=== PATIENT | male | born 1965 | race Caucasian/White ===

== ENCOUNTER 2017-07-13 14:37 | Inpatient (IN) | payer MEDICARE, OTHER ==
[2017-07-13 15:40] LABS: ADD MAN DIFF? NO
[2017-07-13 15:41] LABS: BASOPHILS % 0.4 % (0.0-2.0); EOSINOPHILS # 0.2 10^3/ul (0.0-0.5); EOSINOPHILS % 2.5 % (0.0-7.0); HEMATOCRIT 33.8 % (42.0-52.0); HEMOGLOBIN 10.9 g/dl (14.0-18.0); LYMPHOCYTES # 1.6 10^3/ul (0.8-2.9); LYMPHOCYTES % 23.2 % (15.0-51.0); MEAN CORPUSCULAR HEMOGLOBIN 27.1 pg (29.0-33.0); MEAN CORPUSCULAR HGB CONC 32.2 g/dl (32.0-37.0); MEAN CORPUSCULAR VOLUME 84.1 fl (82.0-101.0); MEAN PLATELET VOLUME 10.9 fl (7.4-10.4); MONOCYTE # 0.5 10^3/ul (0.3-0.9); NEUTROPHIL # 4.5 10^3/ul (1.6-7.5); NEUTROPHILS % 66.8 % (39.0-77.0); PLATELET COUNT 162 10^3/UL (140-415); RED BLOOD COUNT 4.02 10^6/ul (4.70-6.10); RED CELL DISTRIBUTION WIDTH 18.6 % (11.5-14.5)
[2017-07-13 15:41] LABS: WHITE BLOOD COUNT 6.7 10^3/ul (4.8-10.8)
[2017-07-13 15:59] LABS: ALANINE AMINOTRANSFERASE 61 IU/L (13-69); ALBUMIN 3.5 g/dl (3.3-4.9); ALBUMIN/GLOBULIN RATIO 0.85; ALKALINE PHOSPHATASE 453 IU/L (42-121); ANION GAP 14 (8-16); ASPARTATE AMINO TRANSFERASE 55 IU/L (15-46); BILIRUBIN,INDIRECT 0.6 mg/dl (0-1.1); BILIRUBIN,TOTAL 0.6 mg/dl (0.2-1.3); BLOOD UREA NITROGEN 51 mg/dl (7-20); CALCIUM 8.6 mg/dl (8.4-10.2); CARBON DIOXIDE 33 mmol/L (21-31); CHLORIDE 105 mmol/L (97-110); GLUCOSE 63 mg/dl (70-220); POTASSIUM 3.7 mmol/L (3.5-5.1); SODIUM 148 mmol/L (135-144); TOTAL PROTEIN 7.6 g/dl (6.1-8.1)
[2017-07-13 16:09] LABS: PT RATIO 2.5
[2017-07-13 16:10] LABS: PARTIAL THROMBOPLASTIN TIME 54.3 Sec (25.0-35.0)
[2017-07-13 16:35] LABS: B-TYPE NATRIURETIC PEPTIDE 3370 PG/ML (0-125); TROPONIN-I 0.012 ng/ml (0.00-0.12)
[2017-07-13] MEDS: DEXTROSE 50% 50 ML SYRINGE IV (16:51)
[2017-07-13] MEDS ORDERED: ACETAMINOPHEN 325 MG TAB PO (17:30)
[2017-07-13] MEDS ORDERED: ONDANSETRON 4 MG INJ IV (17:30)
[2017-07-13] MEDS ORDERED: HYDROCODONE/APAP (5/325) TAB PO (18:30)
[2017-07-13] MEDS ORDERED: BUMETANIDE 1 MG INJ IV ×2 (18:30)
[2017-07-13] MEDS ORDERED: NACL 0.9% 3 ML SYG IV (18:30)
[2017-07-13] MEDS ORDERED: GLUCOSE GEL 15 GRAM TUBE BUCCAL (19:00)
[2017-07-13] MEDS ORDERED: DEXTROSE 50% 50 ML SYRINGE IV ×2 (19:00)
[2017-07-13] MEDS ORDERED: GLUCOSE GEL 15 GRAM TUBE PO ×2 (19:00)
[2017-07-13] MEDS ORDERED: GLUCAGON 1 MG INJ IM (19:00)
[2017-07-13] MEDS: INSULIN ASPART [NOVOLOG] 3 ML PEN SC (21:00)
[2017-07-13] MEDS ORDERED: PREGABALIN 100 MG CAP PO (21:00)
[2017-07-13] MEDS: ATORVASTATIN 80 MG TAB PO (21:51)
[2017-07-13] MEDS: INSULIN GLARGINE [LANtus] 3 ML PEN SC (21:55)
[2017-07-13] MEDS: BUMETANIDE 25 MG in DEXTROSE 5% 150 ML IV (22:00)
[2017-07-13] MEDS: PREGABALIN 50 MG CAP PO (22:03)
[2017-07-14] MEDS: ACCU-CHEK XX (02:00)
[2017-07-14] MEDS: AMIODARONE 200 MG TAB PO (08:37)
[2017-07-14] MEDS: ASPIRIN (EC) 81 MG TAB PO (08:37)
[2017-07-14] MEDS: ISOSORBIDE MONONITRATE(SR)60 MG TAB PO (08:38)
[2017-07-14] MEDS: CITALOPRAM 20 MG TAB PO (08:38)
[2017-07-14] MEDS: MAGNESIUM OXIDE 400 MG TAB PO (08:38)
[2017-07-14] MEDS: INSULIN ASPART [NOVOLOG] 3 ML PEN SC ×7 (09:00→20:47)
[2017-07-14 09:12] LABS: ADD MAN DIFF? NO
[2017-07-14 09:15] LABS: BASOPHILS % 0.6 % (0.0-2.0); EOSINOPHILS # 0.2 10^3/ul (0.0-0.5); EOSINOPHILS % 2.4 % (0.0-7.0); HEMATOCRIT 35.7 % (42.0-52.0); HEMOGLOBIN 11.6 g/dl (14.0-18.0); MEAN CORPUSCULAR HEMOGLOBIN 27.3 pg (29.0-33.0); MEAN CORPUSCULAR HGB CONC 32.5 g/dl (32.0-37.0); MEAN PLATELET VOLUME 11.4 fl (7.4-10.4); MONOCYTE # 0.4 10^3/ul (0.3-0.9); MONOCYTES % 6.3 % (0.0-11.0); NEUTROPHIL # 5.2 10^3/ul (1.6-7.5); NEUTROPHILS % 75.4 % (39.0-77.0); PLATELET COUNT 180 10^3/UL (140-415); RED BLOOD COUNT 4.25 10^6/ul (4.70-6.10); RED CELL DISTRIBUTION WIDTH 18.7 % (11.5-14.5)
[2017-07-14 09:35] LABS: ALANINE AMINOTRANSFERASE 64 IU/L (13-69); ALBUMIN 3.7 g/dl (3.3-4.9); ALKALINE PHOSPHATASE 502 IU/L (42-121); ANION GAP 15 (8-16); ASPARTATE AMINO TRANSFERASE 49 IU/L (15-46); BLOOD UREA NITROGEN 49 mg/dl (7-20); CALCIUM 8.9 mg/dl (8.4-10.2); CARBON DIOXIDE 34 mmol/L (21-31); CHLORIDE 101 mmol/L (97-110); CREATININE 2.16 mg/dl (0.61-1.24); GLUCOSE 155 mg/dl (70-220); POTASSIUM 3.4 mmol/L (3.5-5.1); SODIUM 147 mmol/L (135-144); TOTAL PROTEIN 7.8 g/dl (6.1-8.1)
[2017-07-14 09:38] LABS: HEMOGLOBIN A1C 7.8 % (0-5.9)
[2017-07-14] MEDS: POTASSIUM CHLORIDE (SR) 20 MEQ TAB PO (10:21)
[2017-07-14] MEDS: PREGABALIN 50 MG CAP PO ×3 (10:21→20:46)
[2017-07-14 13:34] LABS: PROTIME 29.4 Sec (11.9-14.9); PT RATIO 2.3
[2017-07-14] MEDS: WARFARIN 5 MG TAB PO (17:35)
[2017-07-14] MEDS: BUMETANIDE 1 MG INJ IV (18:06)
[2017-07-14] MEDS ORDERED: INSULIN GLARGINE [LANtus] 3 ML PEN SC (20:00)
[2017-07-14] MEDS: ATORVASTATIN 80 MG TAB PO (20:46)
[2017-07-14] MEDS: INSULIN GLARGINE [LANtus] 3 ML PEN SC (20:53)
[2017-07-15] MEDS: ACCU-CHEK XX (02:00)
[2017-07-15] MEDS: BUMETANIDE 1 MG INJ IV (05:33)
[2017-07-15 07:15] LABS: ADD MAN DIFF? NO
[2017-07-15 07:23] LABS: BASOPHILS % 0.6 % (0.0-2.0); EOSINOPHILS # 0.2 10^3/ul (0.0-0.5); EOSINOPHILS % 2.6 % (0.0-7.0); HEMATOCRIT 34.7 % (42.0-52.0); HEMOGLOBIN 11.3 g/dl (14.0-18.0); LYMPHOCYTES # 1.4 10^3/ul (0.8-2.9); MEAN CORPUSCULAR HEMOGLOBIN 27.6 pg (29.0-33.0); MEAN CORPUSCULAR HGB CONC 32.6 g/dl (32.0-37.0); MEAN CORPUSCULAR VOLUME 84.6 fl (82.0-101.0); MEAN PLATELET VOLUME 11.3 fl (7.4-10.4); MONOCYTE # 0.6 10^3/ul (0.3-0.9); MONOCYTES % 7.7 % (0.0-11.0); NEUTROPHIL # 5.1 10^3/ul (1.6-7.5); NEUTROPHILS % 69.8 % (39.0-77.0); PLATELET COUNT 176 10^3/UL (140-415); RED CELL DISTRIBUTION WIDTH 18.4 % (11.5-14.5)
[2017-07-15 07:23] LABS: WHITE BLOOD COUNT 7.3 10^3/ul (4.8-10.8)
[2017-07-15 07:43] LABS: INR 2.63; PROTIME 28.8 Sec (11.9-14.9); PT RATIO 2.3
[2017-07-15 07:44] LABS: ANION GAP 14 (8-16); BLOOD UREA NITROGEN 58 mg/dl (7-20); CALCIUM 8.4 mg/dl (8.4-10.2); CARBON DIOXIDE 35 mmol/L (21-31); CHLORIDE 97 mmol/L (97-110); CREATININE 2.28 mg/dl (0.61-1.24); GLUCOSE 141 mg/dl (70-220); MAGNESIUM 2.3 mg/dl (1.7-2.5); POTASSIUM 3.5 mmol/L (3.5-5.1); SODIUM 142 mmol/L (135-144)
[2017-07-15] MEDS: INSULIN ASPART [NOVOLOG] 3 ML PEN SC ×7 (07:55→21:23)
[2017-07-15] MEDS: PREGABALIN 50 MG CAP PO ×3 (08:20→20:47)
[2017-07-15] MEDS: CITALOPRAM 20 MG TAB PO (08:21)
[2017-07-15] MEDS: AMIODARONE 200 MG TAB PO (08:21)
[2017-07-15] MEDS: ASPIRIN (EC) 81 MG TAB PO (08:23)
[2017-07-15] MEDS: ISOSORBIDE MONONITRATE(SR)60 MG TAB PO (08:24)
[2017-07-15] MEDS: LINAGLIPTIN 5 MG TABLET PO (08:24)
[2017-07-15] MEDS: MAGNESIUM OXIDE 400 MG TAB PO (08:24)
[2017-07-15] MEDS: BUMETANIDE 12 MG in DEXTROSE 5% 72 ML IV (13:46)
[2017-07-15] MEDS: WARFARIN 5 MG TAB PO (17:40)
[2017-07-15] MEDS: ATORVASTATIN 80 MG TAB PO (20:48)
[2017-07-15] MEDS: INSULIN GLARGINE [LANtus] 3 ML PEN SC (21:14)
[2017-07-16] MEDS: ACCU-CHEK XX (02:20)
[2017-07-16 07:53] LABS: ANION GAP 11 (8-16); BLOOD UREA NITROGEN 67 mg/dl (7-20); CALCIUM 8.3 mg/dl (8.4-10.2); CARBON DIOXIDE 37 mmol/L (21-31); CHLORIDE 94 mmol/L (97-110); CREATININE 2.65 mg/dl (0.61-1.24); GLUCOSE 198 mg/dl (70-220); MAGNESIUM 2.5 mg/dl (1.7-2.5); POTASSIUM 3.4 mmol/L (3.5-5.1); SODIUM 139 mmol/L (135-144)
[2017-07-16] MEDS: AMIODARONE 200 MG TAB PO (08:08)
[2017-07-16] MEDS: CITALOPRAM 20 MG TAB PO (08:09)
[2017-07-16] MEDS: ASPIRIN (EC) 81 MG TAB PO (08:10)
[2017-07-16] MEDS: PREGABALIN 50 MG CAP PO ×2 (08:11→12:13)
[2017-07-16] MEDS: MAGNESIUM OXIDE 400 MG TAB PO (08:11)
[2017-07-16] MEDS: ISOSORBIDE MONONITRATE(SR)60 MG TAB PO (08:11)
[2017-07-16] MEDS: LINAGLIPTIN 5 MG TABLET PO (08:11)
[2017-07-16] MEDS: INSULIN ASPART [NOVOLOG] 3 ML PEN SC ×4 (08:15→12:20)
[2017-07-16] MEDS: POTASSIUM CHLORIDE (SR) 20 MEQ TAB PO (12:09)
[2017-07-16] MEDS ORDERED: INSULIN GLARGINE [LANtus] 3 ML PEN SC (20:00)
== END 2017-07-16 13:45 | disposition home or self-care (01) | DRG 291 ==
LOC: E/R 14:37 → TEL 17:07
DX: I13.0 Hypertensive heart and chronic kidney disease with heart failure and stage 1 through stage 4 chronic kidney disease, or unspecified chronic kidney disease (principal); I50.23 Acute on chronic systolic (congestive) heart failure; E11.22 Type 2 diabetes mellitus with diabetic chronic kidney disease; N18.3 Chronic kidney disease, stage 3 (moderate); E66.01 Morbid (severe) obesity due to excess calories; E11.40 Type 2 diabetes mellitus with diabetic neuropathy, unspecified; E11.65 Type 2 diabetes mellitus with hyperglycemia; Z68.43 Body mass index [BMI] 50.0-59.9, adult; I25.10 Atherosclerotic heart disease of native coronary artery without angina pectoris; I25.2 Old myocardial infarction; I48.91 Unspecified atrial fibrillation; I25.5 Ischemic cardiomyopathy; E78.5 Hyperlipidemia, unspecified; G47.33 Obstructive sleep apnea (adult) (pediatric); Z86.73 Personal history of transient ischemic attack (TIA), and cerebral infarction without residual deficits; Z79.4 Long term (current) use of insulin; Z95.5 Presence of coronary angioplasty implant and graft
CPT/HCPCS: 36415; 71045; 80048; 80053; 82962; 83036; 83735; 83880; 84484; 85025; 85610; 85730; 93005; 94660; 96374; 99285-25

== ENCOUNTER 2017-07-29 17:35 | Inpatient (IN) | payer MEDICARE, OTHER ==
[2017-07-29] MEDS: SOD CHLORIDE 0.9% 1,000 ML IV (18:24)
[2017-07-29] MEDS: FAMOTIDINE 20 MG INJ IV (18:25)
[2017-07-29 18:30] LABS: ADD MAN DIFF? NO
[2017-07-29 18:31] LABS: BASOPHILS % 0.5 % (0.0-2.0); EOSINOPHILS # 0.2 10^3/ul (0.0-0.5); EOSINOPHILS % 1.9 % (0.0-7.0); HEMATOCRIT 29.8 % (42.0-52.0); HEMOGLOBIN 9.7 g/dl (14.0-18.0); LYMPHOCYTES % 24.7 % (15.0-51.0); MEAN CORPUSCULAR HEMOGLOBIN 26.9 pg (29.0-33.0); MEAN CORPUSCULAR HGB CONC 32.6 g/dl (32.0-37.0); MEAN CORPUSCULAR VOLUME 82.5 fl (82.0-101.0); MEAN PLATELET VOLUME 11.2 fl (7.4-10.4); MONOCYTE # 0.7 10^3/ul (0.3-0.9); NEUTROPHIL # 5.1 10^3/ul (1.6-7.5); NEUTROPHILS % 63.8 % (39.0-77.0); PLATELET COUNT 182 10^3/UL (140-415); RED BLOOD COUNT 3.61 10^6/ul (4.70-6.10); RED CELL DISTRIBUTION WIDTH 18.6 % (11.5-14.5)
[2017-07-29 18:31] LABS: WHITE BLOOD COUNT 7.9 10^3/ul (4.8-10.8)
[2017-07-29 18:50] LABS: ALANINE AMINOTRANSFERASE 57 IU/L (13-69); ALBUMIN 3.6 g/dl (3.3-4.9); ALKALINE PHOSPHATASE 296 IU/L (42-121); ANION GAP 16 (8-16); ASPARTATE AMINO TRANSFERASE 40 IU/L (15-46); BILIRUBIN,INDIRECT 0.3 mg/dl (0-1.1); BILIRUBIN,TOTAL 0.3 mg/dl (0.2-1.3); BLOOD UREA NITROGEN 73 mg/dl (7-20); CALCIUM 8.5 mg/dl (8.4-10.2); CARBON DIOXIDE 33 mmol/L (21-31); CHLORIDE 95 mmol/L (97-110); CREATININE 2.82 mg/dl (0.61-1.24); GLUCOSE 151 mg/dl (70-220); POTASSIUM 3.7 mmol/L (3.5-5.1); SODIUM 140 mmol/L (135-144); TOTAL PROTEIN 7.6 g/dl (6.1-8.1)
[2017-07-29 19:01] LABS: TROPONIN-I 0.027 ng/ml (0.00-0.12)
[2017-07-29 19:05] LABS: INR 3.03; PROTIME 32.3 Sec (11.9-14.9); PT RATIO 2.5
[2017-07-29 19:06] LABS: PARTIAL THROMBOPLASTIN TIME 40.5 Sec (25.0-35.0)
[2017-07-29 20:08] LABS: ADD UMIC YES; UR ASCORBIC ACID NEGATIVE (NEGATIVE); UR BILIRUBIN (Dip) NEGATIVE (NEGATIVE); UR BLOOD (Dip) 1+ mg/dL (NEGATIVE); UR CLARITY CLEAR (CLEAR); UR COLOR YELLOW (YELLOW); UR GLUCOSE (Dip) NEGATIVE (NEGATIVE); UR KETONES (Dip) NEGATIVE (NEGATIVE); UR LEUKOCYTE ESTERASE (Dip) NEGATIVE Leu/ul (NEGATIVE); UR NITRITE (Dip) NEGATIVE (NEGATIVE); UR RBC 6 /HPF (0-5); UR TOTAL PROTEIN (Dip) NEGATIVE (NEGATIVE); UR UROBILINOGEN (Dip) NEGATIVE (NEGATIVE); UR WBC 0 /HPF (0-5)
[2017-07-29 21:15] LABS: HEMATOCRIT 31.1 % (42.0-52.0); HEMOGLOBIN 9.9 g/dl (14.0-18.0)
[2017-07-29] MEDS ORDERED: NACL 0.9% 3 ML SYG IV (23:00)
[2017-07-29] MEDS ORDERED: ZOLPIDEM 5 MG TAB PO (23:00)
[2017-07-29] MEDS ORDERED: HYDROCODONE/APAP (5/325) TAB PO (23:00)
[2017-07-29] MEDS ORDERED: GLUCOSE GEL 15 GRAM TUBE BUCCAL (23:30)
[2017-07-29] MEDS ORDERED: GLUCOSE GEL 15 GRAM TUBE PO ×2 (23:30)
[2017-07-29] MEDS ORDERED: GLUCAGON 1 MG INJ IM (23:30)
[2017-07-29] MEDS ORDERED: DEXTROSE 50% 50 ML SYRINGE IV ×2 (23:30)
[2017-07-30] MEDS: PHYTONADIONE 10 MG in DEXTROSE 5% 50 ML IVPB (00:11)
[2017-07-30 00:27] LABS: PROTIME 30.3 Sec (11.9-14.9); PT RATIO 2.4
[2017-07-30 00:28] LABS: PARTIAL THROMBOPLASTIN TIME 38.9 Sec (25.0-35.0)
[2017-07-30] MEDS ORDERED: ACCU-CHEK XX (02:00)
[2017-07-30] MEDS: INSULIN ASPART [NOVOLOG] 3 ML PEN SC ×9 (05:07→20:34)
[2017-07-30 05:16] LABS: ADD MAN DIFF? NO
[2017-07-30 05:18] LABS: BASOPHILS % 0.5 % (0.0-2.0); EOSINOPHILS # 0.2 10^3/ul (0.0-0.5); EOSINOPHILS % 2.3 % (0.0-7.0); HEMATOCRIT 29.7 % (42.0-52.0); HEMOGLOBIN 9.6 g/dl (14.0-18.0); LYMPHOCYTES # 1.9 10^3/ul (0.8-2.9); LYMPHOCYTES % 26.6 % (15.0-51.0); MEAN CORPUSCULAR HEMOGLOBIN 27.2 pg (29.0-33.0); MEAN CORPUSCULAR HGB CONC 32.3 g/dl (32.0-37.0); MEAN CORPUSCULAR VOLUME 84.1 fl (82.0-101.0); MEAN PLATELET VOLUME 11.3 fl (7.4-10.4); MONOCYTE # 0.6 10^3/ul (0.3-0.9); MONOCYTES % 8.5 % (0.0-11.0); NEUTROPHIL # 4.5 10^3/ul (1.6-7.5); NEUTROPHILS % 61.8 % (39.0-77.0); PLATELET COUNT 180 10^3/UL (140-415); RED BLOOD COUNT 3.53 10^6/ul (4.70-6.10); RED CELL DISTRIBUTION WIDTH 18.5 % (11.5-14.5)
[2017-07-30 05:18] LABS: WHITE BLOOD COUNT 7.3 10^3/ul (4.8-10.8)
[2017-07-30 05:38] LABS: ALANINE AMINOTRANSFERASE 55 IU/L (13-69); ALBUMIN 3.5 g/dl (3.3-4.9); ALBUMIN/GLOBULIN RATIO 0.94; ALKALINE PHOSPHATASE 277 IU/L (42-121); ANION GAP 14 (8-16); ASPARTATE AMINO TRANSFERASE 38 IU/L (15-46); BILIRUBIN,INDIRECT 0.3 mg/dl (0-1.1); BILIRUBIN,TOTAL 0.3 mg/dl (0.2-1.3); BLOOD UREA NITROGEN 69 mg/dl (7-20); CALCIUM 8.2 mg/dl (8.4-10.2); CARBON DIOXIDE 30 mmol/L (21-31); CHLORIDE 101 mmol/L (97-110); CREATININE 2.49 mg/dl (0.61-1.24); GLUCOSE 300 mg/dl (70-220); POTASSIUM 3.3 mmol/L (3.5-5.1); SODIUM 142 mmol/L (135-144); TOTAL PROTEIN 7.2 g/dl (6.1-8.1)
[2017-07-30 05:59] LABS: PARTIAL THROMBOPLASTIN TIME 33.6 Sec (25.0-35.0); PROTIME 22.2 Sec (11.9-14.9); PT RATIO 1.7
[2017-07-30] MEDS ORDERED: INSULIN ASPART [NOVOLOG] 3 ML PEN SC (08:00)
[2017-07-30] MEDS: CITALOPRAM 20 MG TAB PO (09:31)
[2017-07-30] MEDS: AMIODARONE 200 MG TAB PO (09:32)
[2017-07-30] MEDS: PREGABALIN 100 MG CAP PO ×3 (09:33→20:28)
[2017-07-30] MEDS: CHLORTHALIDONE 25 MG TAB PO (09:33)
[2017-07-30] MEDS: ISOSORBIDE MONONITRATE(SR)60 MG TAB PO (10:29)
[2017-07-30] MEDS: POTASSIUM CHLORIDE (SR) 10 MEQ TAB PO (10:35)
[2017-07-30] MEDS: BUMETANIDE 1 MG TAB PO ×2 (12:02→17:43)
[2017-07-30] MEDS: BISACODYL (EC) 5 MG TAB PO (16:52)
[2017-07-30] MEDS: MAGNESIUM CITRATE 300 ML BTL PO (17:47)
[2017-07-30] MEDS: POLYETHYLENE GLYCOL 3350 119 GM POWDER PO (18:20)
[2017-07-30] MEDS: ATORVASTATIN 80 MG TAB PO (20:28)
[2017-07-30] MEDS: INSULIN GLARGINE [LANtus] 3 ML PEN SC (20:33)
[2017-07-30 23:11] LABS: ADD MAN DIFF? NO
[2017-07-30 23:13] LABS: BASOPHIL # 0.1 10^3/ul (0.0-0.1); BASOPHILS % 0.7 % (0.0-2.0); EOSINOPHILS # 0.2 10^3/ul (0.0-0.5); EOSINOPHILS % 2.7 % (0.0-7.0); HEMATOCRIT 30.4 % (42.0-52.0); HEMOGLOBIN 9.5 g/dl (14.0-18.0); LYMPHOCYTES # 1.9 10^3/ul (0.8-2.9); LYMPHOCYTES % 27.6 % (15.0-51.0); MEAN CORPUSCULAR HEMOGLOBIN 26.4 pg (29.0-33.0); MEAN CORPUSCULAR HGB CONC 31.3 g/dl (32.0-37.0); MEAN CORPUSCULAR VOLUME 84.4 fl (82.0-101.0); MEAN PLATELET VOLUME 10.9 fl (7.4-10.4); MONOCYTE # 0.6 10^3/ul (0.3-0.9); MONOCYTES % 8.2 % (0.0-11.0); NEUTROPHIL # 4.3 10^3/ul (1.6-7.5); NEUTROPHILS % 60.5 % (39.0-77.0); PLATELET COUNT 190 10^3/UL (140-415); RED CELL DISTRIBUTION WIDTH 18.6 % (11.5-14.5)
[2017-07-31] MEDS: BUMETANIDE 1 MG TAB PO ×2 (05:13→17:26)
[2017-07-31] MEDS: POLYETHYLENE GLYCOL 3350 119 GM POWDER PO ×2 (05:19→18:05)
[2017-07-31 05:36] LABS: ADD MAN DIFF? NO
[2017-07-31 05:41] LABS: WHITE BLOOD COUNT 7.4 10^3/ul (4.8-10.8)
[2017-07-31 05:41] LABS: BASOPHIL # 0.1 10^3/ul (0.0-0.1); BASOPHILS % 0.7 % (0.0-2.0); EOSINOPHILS # 0.2 10^3/ul (0.0-0.5); HEMATOCRIT 29.5 % (42.0-52.0); HEMOGLOBIN 9.5 g/dl (14.0-18.0); LYMPHOCYTES # 1.9 10^3/ul (0.8-2.9); LYMPHOCYTES % 25.4 % (15.0-51.0); MEAN CORPUSCULAR HGB CONC 32.2 g/dl (32.0-37.0); MEAN CORPUSCULAR VOLUME 83.8 fl (82.0-101.0); MEAN PLATELET VOLUME 11.3 fl (7.4-10.4); MONOCYTE # 0.7 10^3/ul (0.3-0.9); MONOCYTES % 8.9 % (0.0-11.0); NEUTROPHIL # 4.6 10^3/ul (1.6-7.5); NEUTROPHILS % 61.9 % (39.0-77.0); PLATELET COUNT 183 10^3/UL (140-415); RED BLOOD COUNT 3.52 10^6/ul (4.70-6.10); RED CELL DISTRIBUTION WIDTH 18.6 % (11.5-14.5)
[2017-07-31 05:53] LABS: HEMOGLOBIN A1C 7.2 % (0-5.9)
[2017-07-31 06:04] LABS: INR 1.28; PROTIME 16.2 Sec (11.9-14.9); PT RATIO 1.3
[2017-07-31 06:07] LABS: ALANINE AMINOTRANSFERASE 64 IU/L (13-69); ALBUMIN 3.4 g/dl (3.3-4.9); ALBUMIN/GLOBULIN RATIO 0.85; ALKALINE PHOSPHATASE 307 IU/L (42-121); ANION GAP 10 (8-16); ASPARTATE AMINO TRANSFERASE 46 IU/L (15-46); BLOOD UREA NITROGEN 67 mg/dl (7-20); CALCIUM 8.5 mg/dl (8.4-10.2); CARBON DIOXIDE 36 mmol/L (21-31); CHLORIDE 99 mmol/L (97-110); GLUCOSE 105 mg/dl (70-220); SODIUM 142 mmol/L (135-144); TOTAL PROTEIN 7.4 g/dl (6.1-8.1)
[2017-07-31 06:08] LABS: PHOSPHORUS 4.3 mg/dl (2.5-4.9)
[2017-07-31 06:08] LABS: CHOL/HDL RATIO 3.1 RATIO; CHOLESTEROL 98 mg/dl (100-200); HDL CHOLESTEROL 31 mg/dl (28-71); LDL CHOLESTEROL,CALCULATED 44 mg/dl; TRIGLYCERIDES 116 mg/dl (0-149)
[2017-07-31 06:10] LABS: POTASSIUM 2.9 mmol/L (3.5-5.1)
[2017-07-31] MEDS ORDERED: POTASSIUM CHLORIDE (SR) 20 MEQ TAB PO (06:14)
[2017-07-31 06:22] LABS: FREE T4 (FREE THYROXINE) 1.29 ng/dl (0.64-1.79)
[2017-07-31] MEDS ORDERED: POTASSIUM CHLORIDE 100 ML IVPB (06:30)
[2017-07-31] MEDS: POTASSIUM CHLORIDE (SR) 20 MEQ TAB PO (06:40)
[2017-07-31] MEDS: INSULIN ASPART [NOVOLOG] 3 ML PEN SC ×7 (07:50→21:00)
[2017-07-31] MEDS: POTASSIUM CHLORIDE 100 ML IVPB ×2 (08:31→08:36)
[2017-07-31] MEDS: AMIODARONE 200 MG TAB PO (09:31)
[2017-07-31] MEDS: CITALOPRAM 20 MG TAB PO (09:32)
[2017-07-31] MEDS: CHLORTHALIDONE 25 MG TAB PO (09:36)
[2017-07-31] MEDS: ISOSORBIDE MONONITRATE(SR)60 MG TAB PO (09:37)
[2017-07-31] MEDS: PREGABALIN 100 MG CAP PO ×3 (09:38→20:28)
[2017-07-31] MEDS: BISACODYL (EC) 5 MG TAB PO ×2 (09:39→17:26)
[2017-07-31] MEDS: MAGNESIUM CITRATE 300 ML BTL PO (18:04)
[2017-07-31] MEDS: INSULIN GLARGINE [LANtus] 3 ML PEN SC (20:28)
[2017-07-31] MEDS: ATORVASTATIN 80 MG TAB PO (21:00)
[2017-08-01 05:45] LABS: ADD MAN DIFF? NO
[2017-08-01] MEDS: POLYETHYLENE GLYCOL 3350 119 GM POWDER PO (05:53)
[2017-08-01] MEDS: BUMETANIDE 1 MG TAB PO ×2 (05:53→18:00)
[2017-08-01 06:09] LABS: BASOPHILS % 0.6 % (0.0-2.0); EOSINOPHILS # 0.2 10^3/ul (0.0-0.5); EOSINOPHILS % 2.8 % (0.0-7.0); HEMATOCRIT 31.1 % (42.0-52.0); HEMOGLOBIN 9.8 g/dl (14.0-18.0); LYMPHOCYTES # 1.7 10^3/ul (0.8-2.9); LYMPHOCYTES % 24.9 % (15.0-51.0); MEAN CORPUSCULAR HEMOGLOBIN 26.7 pg (29.0-33.0); MEAN CORPUSCULAR HGB CONC 31.5 g/dl (32.0-37.0); MEAN CORPUSCULAR VOLUME 84.7 fl (82.0-101.0); MEAN PLATELET VOLUME 11.5 fl (7.4-10.4); MONOCYTE # 0.6 10^3/ul (0.3-0.9); MONOCYTES % 9.3 % (0.0-11.0); NEUTROPHIL # 4.2 10^3/ul (1.6-7.5); NEUTROPHILS % 62.3 % (39.0-77.0); PLATELET COUNT 191 10^3/UL (140-415); RED BLOOD COUNT 3.67 10^6/ul (4.70-6.10); RED CELL DISTRIBUTION WIDTH 18.5 % (11.5-14.5)
[2017-08-01 06:09] LABS: WHITE BLOOD COUNT 6.7 10^3/ul (4.8-10.8)
[2017-08-01 06:11] LABS: INR 1.25; PROTIME 15.9 Sec (11.9-14.9); PT RATIO 1.2
[2017-08-01 06:31] LABS: PHOSPHORUS 4.4 mg/dl (2.5-4.9)
[2017-08-01 06:32] LABS: ALANINE AMINOTRANSFERASE 81 IU/L (13-69); ALBUMIN 3.6 g/dl (3.3-4.9); ALKALINE PHOSPHATASE 344 IU/L (42-121); ANION GAP 10 (8-16); ASPARTATE AMINO TRANSFERASE 63 IU/L (15-46); BLOOD UREA NITROGEN 62 mg/dl (7-20); CALCIUM 8.6 mg/dl (8.4-10.2); CARBON DIOXIDE 37 mmol/L (21-31); CHLORIDE 99 mmol/L (97-110); CREATININE 2.28 mg/dl (0.61-1.24); GLUCOSE 100 mg/dl (70-220); SODIUM 143 mmol/L (135-144); TOTAL PROTEIN 7.6 g/dl (6.1-8.1)
[2017-08-01 06:34] LABS: POTASSIUM 2.6 mmol/L (3.5-5.1)
[2017-08-01] MEDS: INSULIN ASPART [NOVOLOG] 3 ML PEN SC ×7 (07:50→21:00)
[2017-08-01] MEDS: POTASSIUM CHLORIDE 100 ML IVPB ×2 (08:31→10:30)
[2017-08-01] MEDS: ISOSORBIDE MONONITRATE(SR)60 MG TAB PO (08:32)
[2017-08-01] MEDS: BISACODYL (EC) 5 MG TAB PO (08:33)
[2017-08-01] MEDS: CITALOPRAM 20 MG TAB PO (08:33)
[2017-08-01] MEDS: AMIODARONE 200 MG TAB PO (08:33)
[2017-08-01] MEDS: CHLORTHALIDONE 25 MG TAB PO (08:34)
[2017-08-01] MEDS: PREGABALIN 100 MG CAP PO ×3 (08:34→22:09)
[2017-08-01 14:24] LABS: POTASSIUM 2.8 mmol/L (3.5-5.1)
[2017-08-01] MEDS: LIDOCAINE 4% SOLUTION 50 ML BTL (19:08)
[2017-08-01] MEDS ORDERED: ONDANSETRON 4 MG INJ IV (19:30)
[2017-08-01] MEDS ORDERED: LIDOCAINE 2% (SDV) 5 ML INJ (19:57)
[2017-08-01] MEDS ORDERED: ETOMIDATE 20 MG INJ (19:57)
[2017-08-01] MEDS ORDERED: MIDAZOLAM 1 MG/ML 2 ML INJ (19:59)
[2017-08-01] MEDS ORDERED: POTASSIUM CHLORIDE 50 ML IVPB (22:00)
[2017-08-01] MEDS ORDERED: POTASSIUM CHLORIDE 100 ML IVPB (22:00)
[2017-08-01] MEDS ORDERED: POTASSIUM BICARBONATE 25 MEQ TAB PO (22:00)
[2017-08-01] MEDS: ATORVASTATIN 80 MG TAB PO (22:09)
[2017-08-01] MEDS: INSULIN GLARGINE [LANtus] 3 ML PEN SC (22:16)
[2017-08-01] MEDS: KCL 30 MEQ in NS 250 ML IVPB X1 IVPB (23:46)
[2017-08-01] MEDS: POTASSIUM CHLORIDE (SR) 20 MEQ TAB PO (23:46)
[2017-08-02 05:17] LABS: WHITE BLOOD COUNT 6.6 10^3/ul (4.8-10.8)
[2017-08-02 05:17] LABS: ADD MAN DIFF? NO; BASOPHILS % 0.5 % (0.0-2.0); EOSINOPHILS # 0.1 10^3/ul (0.0-0.5); HEMATOCRIT 32.1 % (42.0-52.0); HEMOGLOBIN 10.2 g/dl (14.0-18.0); LYMPHOCYTES # 1.9 10^3/ul (0.8-2.9); MEAN CORPUSCULAR HEMOGLOBIN 26.9 pg (29.0-33.0); MEAN CORPUSCULAR HGB CONC 31.8 g/dl (32.0-37.0); MEAN CORPUSCULAR VOLUME 84.7 fl (82.0-101.0); MEAN PLATELET VOLUME 11.7 fl (7.4-10.4); MONOCYTE # 0.6 10^3/ul (0.3-0.9); MONOCYTES % 8.7 % (0.0-11.0); NEUTROPHILS % 59.8 % (39.0-77.0); PLATELET COUNT 199 10^3/UL (140-415); RED BLOOD COUNT 3.79 10^6/ul (4.70-6.10); RED CELL DISTRIBUTION WIDTH 18.9 % (11.5-14.5)
[2017-08-02] MEDS: BUMETANIDE 1 MG TAB PO ×2 (05:28→18:11)
[2017-08-02 05:46] LABS: ANION GAP 11 (8-16); BLOOD UREA NITROGEN 59 mg/dl (7-20); CALCIUM 8.9 mg/dl (8.4-10.2); CARBON DIOXIDE 37 mmol/L (21-31); CHLORIDE 97 mmol/L (97-110); CREATININE 2.39 mg/dl (0.61-1.24); GLUCOSE 213 mg/dl (70-220); MAGNESIUM 2.7 mg/dl (1.7-2.5); POTASSIUM 3.3 mmol/L (3.5-5.1); SODIUM 142 mmol/L (135-144)
[2017-08-02] MEDS: PREGABALIN 100 MG CAP PO ×3 (08:44→20:47)
[2017-08-02] MEDS: CITALOPRAM 20 MG TAB PO (08:44)
[2017-08-02] MEDS: CHLORTHALIDONE 25 MG TAB PO (08:47)
[2017-08-02] MEDS: ISOSORBIDE MONONITRATE(SR)60 MG TAB PO (08:47)
[2017-08-02] MEDS: AMIODARONE 200 MG TAB PO (08:49)
[2017-08-02] MEDS: INSULIN ASPART [NOVOLOG] 3 ML PEN SC ×7 (08:52→21:00)
[2017-08-02] MEDS: POTASSIUM CHLORIDE 20 MEQ POWDER FOR ORAL SOLN PO (08:59)
[2017-08-02] MEDS ORDERED: POTASSIUM BICARBONATE 25 MEQ TAB PO (09:00)
[2017-08-02] MEDS ORDERED: POTASSIUM CHLORIDE (SR) 20 MEQ TAB PO (09:00)
[2017-08-02] MEDS: ATORVASTATIN 80 MG TAB PO (20:53)
[2017-08-02] MEDS: INSULIN GLARGINE [LANtus] 3 ML PEN SC (20:56)
[2017-08-02] MEDS: POTASSIUM CHLORIDE (SR) 20 MEQ TAB PO (21:56)
[2017-08-03] MEDS: BUMETANIDE 1 MG TAB PO (04:44)
[2017-08-03 05:16] LABS: ADD MAN DIFF? NO
[2017-08-03 05:22] LABS: BASOPHIL # 0.1 10^3/ul (0.0-0.1); BASOPHILS % 0.9 % (0.0-2.0); EOSINOPHILS # 0.2 10^3/ul (0.0-0.5); EOSINOPHILS % 2.8 % (0.0-7.0); HEMATOCRIT 30.9 % (42.0-52.0); HEMOGLOBIN 9.8 g/dl (14.0-18.0); LYMPHOCYTES % 28.8 % (15.0-51.0); MEAN CORPUSCULAR HEMOGLOBIN 26.8 pg (29.0-33.0); MEAN CORPUSCULAR HGB CONC 31.7 g/dl (32.0-37.0); MEAN CORPUSCULAR VOLUME 84.7 fl (82.0-101.0); MEAN PLATELET VOLUME 11.9 fl (7.4-10.4); MONOCYTE # 0.7 10^3/ul (0.3-0.9); MONOCYTES % 10.3 % (0.0-11.0); NEUTROPHIL # 3.9 10^3/ul (1.6-7.5); NEUTROPHILS % 56.9 % (39.0-77.0); PLATELET COUNT 190 10^3/UL (140-415); RED BLOOD COUNT 3.65 10^6/ul (4.70-6.10); RED CELL DISTRIBUTION WIDTH 18.6 % (11.5-14.5)
[2017-08-03 05:22] LABS: WHITE BLOOD COUNT 6.8 10^3/ul (4.8-10.8)
[2017-08-03 05:42] LABS: ANION GAP 17 (8-16); BLOOD UREA NITROGEN 68 mg/dl (7-20); CARBON DIOXIDE 31 mmol/L (21-31); CHLORIDE 95 mmol/L (97-110); CREATININE 2.65 mg/dl (0.61-1.24); GLUCOSE 163 mg/dl (70-220); POTASSIUM 3.6 mmol/L (3.5-5.1); SODIUM 139 mmol/L (135-144)
[2017-08-03] MEDS: CITALOPRAM 20 MG TAB PO (08:58)
[2017-08-03] MEDS: AMIODARONE 200 MG TAB PO (09:00)
[2017-08-03] MEDS: CHLORTHALIDONE 25 MG TAB PO (09:02)
[2017-08-03] MEDS: INSULIN ASPART [NOVOLOG] 3 ML PEN SC ×2 (09:02→09:03)
[2017-08-03] MEDS: ISOSORBIDE MONONITRATE(SR)60 MG TAB PO (09:04)
[2017-08-03] MEDS: PREGABALIN 100 MG CAP PO (09:04)
== END 2017-08-03 12:33 | disposition home or self-care (01) | DRG 377 ==
LOC: E/R 17:35 → MS1 21:10
PROC: 0DJ08ZZ Inspection of Upper Intestinal Tract, Via Natural or Artificial Opening Endoscopic (ICD-10-PCS; principal; 2017-08-01 18:45)
PROC: 0DBK8ZX Excision of Ascending Colon, Via Natural or Artificial Opening Endoscopic, Diagnostic (ICD-10-PCS; 2017-08-01 18:45)
DX: K92.1 Melena (principal); I50.23 Acute on chronic systolic (congestive) heart failure; Z68.43 Body mass index [BMI] 50.0-59.9, adult; D62 Acute posthemorrhagic anemia; I13.0 Hypertensive heart and chronic kidney disease with heart failure and stage 1 through stage 4 chronic kidney disease, or unspecified chronic kidney disease; E66.01 Morbid (severe) obesity due to excess calories; E11.22 Type 2 diabetes mellitus with diabetic chronic kidney disease; N18.3 Chronic kidney disease, stage 3 (moderate); I25.5 Ischemic cardiomyopathy; D64.9 Anemia, unspecified; I25.10 Atherosclerotic heart disease of native coronary artery without angina pectoris; E78.5 Hyperlipidemia, unspecified; G47.33 Obstructive sleep apnea (adult) (pediatric); I48.0 Paroxysmal atrial fibrillation; E11.40 Type 2 diabetes mellitus with diabetic neuropathy, unspecified; E83.41 Hypermagnesemia; L40.9 Psoriasis, unspecified; E87.6 Hypokalemia; K29.70 Gastritis, unspecified, without bleeding; K63.5 Polyp of colon; F17.210 Nicotine dependence, cigarettes, uncomplicated; T45.515A Adverse effect of anticoagulants, initial encounter; I25.2 Old myocardial infarction; Y92.019 Unspecified place in single-family (private) house as the place of occurrence of the external cause; Z79.01 Long term (current) use of anticoagulants; Z79.4 Long term (current) use of insulin; Z79.82 Long term (current) use of aspirin; Z86.73 Personal history of transient ischemic attack (TIA), and cerebral infarction without residual deficits; Z95.0 Presence of cardiac pacemaker; Z90.49 Acquired absence of other specified parts of digestive tract
CPT/HCPCS: 36415; 71045; 80048; 80053; 80061; 81001; 82962; 83036; 83735; 84100; 84132; 84439; 84443; 84484; 85014; 85018; 85025; 85610; 85730; 86850; 86900; 86901; 88305; 93005; 94660; 96374; 99285-25

== ENCOUNTER 2017-09-21 14:34 | Inpatient (IN) | payer MEDICARE, OTHER ==
[2017-09-21 16:35] LABS: ADD MAN DIFF? NO
[2017-09-21 16:41] LABS: ABNORMAL IP MESSAGE 1; BASOPHIL # 0.1 10^3/ul (0.0-0.1); BASOPHILS % 0.5 % (0.0-2.0); EOSINOPHILS # 0.3 10^3/ul (0.0-0.5); EOSINOPHILS % 3.1 % (0.0-7.0); HEMOGLOBIN 9.9 g/dl (14.0-18.0); LYMPHOCYTES # 1.6 10^3/ul (0.8-2.9); LYMPHOCYTES % 16.4 % (15.0-51.0); MEAN CORPUSCULAR HEMOGLOBIN 23.6 pg (29.0-33.0); MEAN CORPUSCULAR HGB CONC 30.9 g/dl (32.0-37.0); MEAN CORPUSCULAR VOLUME 76.4 fl (82.0-101.0); MEAN PLATELET VOLUME 10.8 fl (7.4-10.4); MONOCYTE # 0.7 10^3/ul (0.3-0.9); MONOCYTES % 6.9 % (0.0-11.0); NEUTROPHIL # 7.1 10^3/ul (1.6-7.5); NEUTROPHILS % 72.9 % (39.0-77.0); PLATELET COUNT 215 10^3/UL (140-415); POSITIVE DIFF @See below; RED BLOOD COUNT 4.19 10^6/ul (4.70-6.10); RED CELL DISTRIBUTION WIDTH 19.9 % (11.5-14.5)
[2017-09-21 16:41] LABS: WHITE BLOOD COUNT 9.7 10^3/ul (4.8-10.8)
[2017-09-21 16:57] LABS: ALANINE AMINOTRANSFERASE 25 IU/L (13-69); ALBUMIN 3.8 g/dl (3.3-4.9); ALBUMIN/GLOBULIN RATIO 0.86; ALKALINE PHOSPHATASE 202 IU/L (42-121); ANION GAP 14 (8-16); ASPARTATE AMINO TRANSFERASE 16 IU/L (15-46); BILIRUBIN,INDIRECT 0.6 mg/dl (0-1.1); BILIRUBIN,TOTAL 0.6 mg/dl (0.2-1.3); BLOOD UREA NITROGEN 64 mg/dl (7-20); CARBON DIOXIDE 35 mmol/L (21-31); CHLORIDE 97 mmol/L (97-110); GLUCOSE 81 mg/dl (70-220); POTASSIUM 3.7 mmol/L (3.5-5.1); SODIUM 142 mmol/L (135-144); TOTAL PROTEIN 8.2 g/dl (6.1-8.1)
[2017-09-21 17:01] LABS: INR 1.09; PROTIME 14.3 Sec (11.9-14.9); PT RATIO 1.1
[2017-09-21 17:02] LABS: PARTIAL THROMBOPLASTIN TIME 27.4 Sec (25.0-35.0)
[2017-09-21] MEDS: BUMETANIDE 3 MG in DEXTROSE 5% 30 ML IVPB (17:02)
[2017-09-21] MEDS: BUMETANIDE 1 MG INJ IV (17:03)
[2017-09-21] MEDS: ASPIRIN 325 MG TAB PO (17:24)
[2017-09-21] MEDS ORDERED: ONDANSETRON 4 MG INJ IV (19:00)
[2017-09-21] MEDS ORDERED: ACETAMINOPHEN 325 MG TAB PO (19:00)
[2017-09-21] MEDS ORDERED: HYDROCODONE/APAP (5/325) TAB PO (19:30)
[2017-09-21] MEDS ORDERED: NACL 0.9% 3 ML SYG IV (19:30)
[2017-09-21 20:04] LABS: D-DIMER 282.17 ng/ml (<460)
[2017-09-21 20:16] LABS: CREATINE KINASE 103 IU/L (23-200)
[2017-09-21 20:28] LABS: CK INDEX 1.2
[2017-09-21 20:29] LABS: CK-MB 1.23 ng/ml (0.0-2.4); TROPONIN-I 0.275 ng/ml (0.000-0.120)
[2017-09-21] MEDS: BUMETANIDE 25 MG in DEXTROSE 5% 150 ML IV (20:35)
[2017-09-21] MEDS: INSULIN GLARGINE [LANtus] 3 ML PEN SC (20:58)
[2017-09-21] MEDS: ATORVASTATIN 80 MG TAB PO (20:59)
[2017-09-21] MEDS: HEPARIN 5,000 UNIT/0.5 ML VIAL SC (21:01)
[2017-09-21] MEDS: PREGABALIN 100 MG CAP PO (22:23)
[2017-09-22 06:13] LABS: ADD MAN DIFF? NO
[2017-09-22 06:23] LABS: WHITE BLOOD COUNT 8.2 10^3/ul (4.8-10.8)
[2017-09-22 06:23] LABS: ABNORMAL IP MESSAGE 1; BASOPHILS % 0.5 % (0.0-2.0); EOSINOPHILS # 0.3 10^3/ul (0.0-0.5); EOSINOPHILS % 3.7 % (0.0-7.0); HEMATOCRIT 32.7 % (42.0-52.0); LYMPHOCYTES % 24.7 % (15.0-51.0); MEAN CORPUSCULAR HEMOGLOBIN 23.3 pg (29.0-33.0); MEAN CORPUSCULAR HGB CONC 30.6 g/dl (32.0-37.0); MEAN CORPUSCULAR VOLUME 76.2 fl (82.0-101.0); MONOCYTE # 0.6 10^3/ul (0.3-0.9); MONOCYTES % 6.7 % (0.0-11.0); NEUTROPHIL # 5.3 10^3/ul (1.6-7.5); NEUTROPHILS % 64.2 % (39.0-77.0); PLATELET COUNT 214 10^3/UL (140-415); POSITIVE DIFF @See below; RED BLOOD COUNT 4.29 10^6/ul (4.70-6.10); RED CELL DISTRIBUTION WIDTH 20.4 % (11.5-14.5)
[2017-09-22 07:01] LABS: ALANINE AMINOTRANSFERASE 21 IU/L (13-69); ALBUMIN 3.7 g/dl (3.3-4.9); ALBUMIN/GLOBULIN RATIO 0.86; ALKALINE PHOSPHATASE 199 IU/L (42-121); ANION GAP 14 (8-16); ASPARTATE AMINO TRANSFERASE 18 IU/L (15-46); BILIRUBIN,INDIRECT 0.5 mg/dl (0-1.1); BILIRUBIN,TOTAL 0.5 mg/dl (0.2-1.3); BLOOD UREA NITROGEN 71 mg/dl (7-20); CALCIUM 8.9 mg/dl (8.4-10.2); CARBON DIOXIDE 37 mmol/L (21-31); CHLORIDE 93 mmol/L (97-110); CREATININE 2.58 mg/dl (0.61-1.24); GLUCOSE 259 mg/dl (70-220); MAGNESIUM 2.4 mg/dl (1.7-2.5); SODIUM 141 mmol/L (135-144)
[2017-09-22 07:05] LABS: HEMOGLOBIN A1C 8.7 % (0-5.9)
[2017-09-22] MEDS: ASPIRIN (EC) 81 MG TAB PO (08:40)
[2017-09-22] MEDS: CHLORTHALIDONE 25 MG TAB PO (08:40)
[2017-09-22] MEDS: MAGNESIUM OXIDE 400 MG TAB PO (08:41)
[2017-09-22] MEDS: CITALOPRAM 20 MG TAB PO (08:42)
[2017-09-22] MEDS: ISOSORBIDE MONONITRATE(SR)60 MG TAB PO (08:42)
[2017-09-22] MEDS: HEPARIN 5,000 UNIT/0.5 ML VIAL SC ×2 (08:46→20:56)
[2017-09-22] MEDS ORDERED: GLUCOSE GEL 15 GRAM TUBE BUCCAL (09:00)
[2017-09-22] MEDS ORDERED: DEXTROSE 50% 50 ML SYRINGE IV ×2 (09:00)
[2017-09-22] MEDS ORDERED: GLUCAGON 1 MG INJ IM (09:00)
[2017-09-22] MEDS ORDERED: GLUCOSE GEL 15 GRAM TUBE PO ×2 (09:00)
[2017-09-22] MEDS ORDERED: INSULIN GLARGINE [LANtus] 3 ML PEN SC ×2 (09:30→21:00)
[2017-09-22] MEDS: PREGABALIN 100 MG CAP PO ×3 (09:32→20:52)
[2017-09-22] MEDS: POTASSIUM CHLORIDE (SR) 20 MEQ TAB PO ×2 (09:32→11:21)
[2017-09-22] MEDS: INSULIN ASPART [NOVOLOG] 3 ML PEN SC ×8 (09:33→20:57)
[2017-09-22] MEDS ORDERED: INSULIN ASPART [NOVOLOG] 3 ML PEN SC ×2 (11:45)
[2017-09-22] MEDS: BUMETANIDE 1 MG TAB PO (11:54)
[2017-09-22 13:18] LABS: ADD UMIC NO; UR ASCORBIC ACID NEGATIVE (NEGATIVE); UR BILIRUBIN (Dip) NEGATIVE (NEGATIVE); UR BLOOD (Dip) NEGATIVE (NEGATIVE); UR CLARITY CLEAR (CLEAR); UR COLOR STRAW (YELLOW); UR GLUCOSE (Dip) 1+ mg/dL (NEGATIVE); UR KETONES (Dip) NEGATIVE (NEGATIVE); UR LEUKOCYTE ESTERASE (Dip) NEGATIVE Leu/ul (NEGATIVE); UR NITRITE (Dip) NEGATIVE (NEGATIVE); UR SPECIFIC GRAVITY (Dip) 1.008 (1.003-1.030); UR TOTAL PROTEIN (Dip) NEGATIVE (NEGATIVE); UR UROBILINOGEN (Dip) NEGATIVE (NEGATIVE)
[2017-09-22 13:25] LABS: CREATININE,URINE RANDOM 28.76 mg/dl (20-370)
[2017-09-22 13:25] LABS: SODIUM,URINE RANDOM 86 mmol/L (30-90)
[2017-09-22] MEDS: [UNRECOGNIZED DRUG - REMARK] XX (19:00)
[2017-09-22] MEDS: ATORVASTATIN 80 MG TAB PO (20:53)
[2017-09-22] MEDS: BUMETANIDE 3 MG in DEXTROSE 5% 30 ML IVPB (20:53)
[2017-09-22] MEDS: INSULIN GLARGINE [LANtus] 3 ML PEN SC (20:56)
[2017-09-23] MEDS: ACCU-CHEK XX (01:36)
[2017-09-23] MEDS: [UNRECOGNIZED DRUG - REMARK] XX (03:00)
[2017-09-23 05:22] LABS: ADD MAN DIFF? NO
[2017-09-23 05:37] LABS: ABNORMAL IP MESSAGE 1; BASOPHILS % 0.5 % (0.0-2.0); EOSINOPHILS # 0.3 10^3/ul (0.0-0.5); EOSINOPHILS % 3.3 % (0.0-7.0); HEMATOCRIT 31.7 % (42.0-52.0); HEMOGLOBIN 9.9 g/dl (14.0-18.0); LYMPHOCYTES # 1.8 10^3/ul (0.8-2.9); MEAN CORPUSCULAR HEMOGLOBIN 23.8 pg (29.0-33.0); MEAN CORPUSCULAR HGB CONC 31.2 g/dl (32.0-37.0); MEAN CORPUSCULAR VOLUME 76.2 fl (82.0-101.0); MEAN PLATELET VOLUME 11.8 fl (7.4-10.4); MONOCYTE # 0.7 10^3/ul (0.3-0.9); MONOCYTES % 8.8 % (0.0-11.0); NEUTROPHILS % 64.1 % (39.0-77.0); PLATELET COUNT 205 10^3/UL (140-415); POSITIVE DIFF @See below; RED BLOOD COUNT 4.16 10^6/ul (4.70-6.10); RED CELL DISTRIBUTION WIDTH 19.8 % (11.5-14.5)
[2017-09-23 05:37] LABS: WHITE BLOOD COUNT 7.8 10^3/ul (4.8-10.8)
[2017-09-23 06:01] LABS: IRON 32 ug/dl (35-150)
[2017-09-23 06:06] LABS: ANION GAP 16 (8-16); BLOOD UREA NITROGEN 77 mg/dl (7-20); CALCIUM 8.7 mg/dl (8.4-10.2); CHLORIDE 88 mmol/L (97-110); CREATININE 2.63 mg/dl (0.61-1.24); GLUCOSE 203 mg/dl (70-220); MAGNESIUM 2.4 mg/dl (1.7-2.5); PHOSPHORUS 5.2 mg/dl (2.5-4.9); SODIUM 141 mmol/L (135-144)
[2017-09-23 06:10] LABS: % IRON SATURATION 9 % SAT (22-52); POTASSIUM 2.7 mmol/L (3.5-5.1); TOTAL IRON BINDING CAPACITY 372 ug/dl (241-421)
[2017-09-23 06:11] LABS: CARBON DIOXIDE 40 mmol/L (21-31)
[2017-09-23 06:19] LABS: FERRITIN 22.1 ng/ml (11.1-264.0)
[2017-09-23] MEDS: POTASSIUM CHLORIDE 100 ML IVPB ×2 (07:48→09:04)
[2017-09-23] MEDS: POTASSIUM CHLORIDE (SR) 20 MEQ TAB PO ×4 (07:49→17:14)
[2017-09-23] MEDS: INSULIN ASPART [NOVOLOG] 3 ML PEN SC ×7 (08:58→21:00)
[2017-09-23] MEDS: CHLORTHALIDONE 25 MG TAB PO (09:00)
[2017-09-23] MEDS: SPIRONOLACTONE 25 MG TAB PO (09:01)
[2017-09-23] MEDS: MAGNESIUM OXIDE 400 MG TAB PO (09:01)
[2017-09-23] MEDS: ASPIRIN (EC) 81 MG TAB PO (09:02)
[2017-09-23] MEDS: HEPARIN 5,000 UNIT/0.5 ML VIAL SC ×2 (09:03→20:40)
[2017-09-23] MEDS: PREGABALIN 100 MG CAP PO ×3 (09:03→20:33)
[2017-09-23] MEDS: ACETAZOLAMIDE 500 MG INJ IV (09:04)
[2017-09-23] MEDS: CITALOPRAM 20 MG TAB PO (10:09)
[2017-09-23] MEDS: ISOSORBIDE MONONITRATE(SR)60 MG TAB PO (10:10)
[2017-09-23] MEDS: BUMETANIDE 3 MG in DEXTROSE 5% 18 ML IVPB (10:10)
[2017-09-23 12:47] LABS: CREATININE, RANDOM URINE 34 mg/dL (20-370); MICROALBUMIN 1.6 mg/dL; MICROALBUMIN/CREATININE RATIO 47 (<30)
[2017-09-23] MEDS: FERROUS SULFATE (EC) 325 MG TAB PO ×2 (13:30→20:33)
[2017-09-23] MEDS: VICTOZA 1.8 MG SC (13:31)
[2017-09-23 14:54] LABS: ANION GAP 18 (8-16); BLOOD UREA NITROGEN 73 mg/dl (7-20); CALCIUM 8.7 mg/dl (8.4-10.2); CARBON DIOXIDE 39 mmol/L (21-31); CHLORIDE 84 mmol/L (97-110); CREATININE 2.43 mg/dl (0.61-1.24); GLUCOSE 357 mg/dl (70-220); SODIUM 138 mmol/L (135-144)
[2017-09-23] MEDS: BUMETANIDE 1 MG TAB PO (18:08)
[2017-09-23] MEDS: INSULIN GLARGINE [LANtus] 3 ML PEN SC (20:38)
[2017-09-23] MEDS: ATORVASTATIN 80 MG TAB PO (21:32)
[2017-09-24] MEDS: ACCU-CHEK XX (02:00)
[2017-09-24] MEDS: BUMETANIDE 1 MG TAB PO ×2 (05:32→17:07)
[2017-09-24 07:28] LABS: ADD MAN DIFF? NO
[2017-09-24 07:33] LABS: WHITE BLOOD COUNT 7.9 10^3/ul (4.8-10.8)
[2017-09-24 07:33] LABS: ABNORMAL IP MESSAGE 1; BASOPHIL # 0.1 10^3/ul (0.0-0.1); BASOPHILS % 0.8 % (0.0-2.0); EOSINOPHILS # 0.3 10^3/ul (0.0-0.5); EOSINOPHILS % 4.1 % (0.0-7.0); HEMATOCRIT 35.2 % (42.0-52.0); HEMOGLOBIN 10.7 g/dl (14.0-18.0); LYMPHOCYTES # 2.2 10^3/ul (0.8-2.9); LYMPHOCYTES % 28.1 % (15.0-51.0); MEAN CORPUSCULAR HEMOGLOBIN 23.3 pg (29.0-33.0); MEAN CORPUSCULAR HGB CONC 30.4 g/dl (32.0-37.0); MEAN CORPUSCULAR VOLUME 76.5 fl (82.0-101.0); MEAN PLATELET VOLUME 11.9 fl (7.4-10.4); MONOCYTE # 0.7 10^3/ul (0.3-0.9); MONOCYTES % 8.5 % (0.0-11.0); NEUTROPHIL # 4.6 10^3/ul (1.6-7.5); NEUTROPHILS % 58.1 % (39.0-77.0); PLATELET COUNT 220 10^3/UL (140-415); POSITIVE DIFF @See below; RED CELL DISTRIBUTION WIDTH 20.8 % (11.5-14.5)
[2017-09-24 07:55] LABS: BLOOD UREA NITROGEN 72 mg/dl (7-20); CALCIUM 9.3 mg/dl (8.4-10.2); CHLORIDE 88 mmol/L (97-110); CREATININE 2.61 mg/dl (0.61-1.24); GLUCOSE 114 mg/dl (70-220); MAGNESIUM 2.7 mg/dl (1.7-2.5); PHOSPHORUS 4.9 mg/dl (2.5-4.9); POTASSIUM 3.4 mmol/L (3.5-5.1); SODIUM 143 mmol/L (135-144)
[2017-09-24] MEDS: SPIRONOLACTONE 25 MG TAB PO (08:11)
[2017-09-24] MEDS: FERROUS SULFATE (EC) 325 MG TAB PO ×2 (08:11→21:32)
[2017-09-24] MEDS: ISOSORBIDE MONONITRATE(SR)60 MG TAB PO (08:11)
[2017-09-24] MEDS: ASPIRIN (EC) 81 MG TAB PO (08:11)
[2017-09-24] MEDS: ACETAZOLAMIDE 500 MG INJ IV (08:12)
[2017-09-24] MEDS: MAGNESIUM OXIDE 400 MG TAB PO (08:12)
[2017-09-24] MEDS: CITALOPRAM 20 MG TAB PO (08:12)
[2017-09-24] MEDS: CHLORTHALIDONE 25 MG TAB PO (08:12)
[2017-09-24] MEDS: INSULIN ASPART [NOVOLOG] 3 ML PEN SC ×7 (08:22→21:35)
[2017-09-24] MEDS: HEPARIN 5,000 UNIT/0.5 ML VIAL SC ×2 (08:22→21:33)
[2017-09-24 08:34] LABS: ANION GAP 19 (8-16)
[2017-09-24 08:37] LABS: CARBON DIOXIDE 39 mmol/L (21-31)
[2017-09-24] MEDS: PREGABALIN 100 MG CAP PO ×3 (09:00→21:32)
[2017-09-24] MEDS: POTASSIUM CHLORIDE 20 MEQ POWDER FOR ORAL SOLN PO (10:26)
[2017-09-24] MEDS: VICTOZA 1.8 MG SC ×2 (11:51→17:12)
[2017-09-24] MEDS: BUMETANIDE 2 MG in DEXTROSE 5% 17 ML IVPB (15:38)
[2017-09-24] MEDS: SOD FERRIC GLUC COMPLX 125 MG in SOD CHLORIDE 0.9% 100 ML IVPB (17:07)
[2017-09-24] MEDS: ATORVASTATIN 80 MG TAB PO (21:32)
[2017-09-24] MEDS: INSULIN GLARGINE [LANtus] 3 ML PEN SC (21:36)
[2017-09-25] MEDS: ACCU-CHEK XX (02:00)
[2017-09-25] MEDS: BUMETANIDE 1 MG TAB PO ×2 (05:32→16:53)
[2017-09-25 07:04] LABS: ANION GAP 18 (8-16); BLOOD UREA NITROGEN 76 mg/dl (7-20); CALCIUM 9.1 mg/dl (8.4-10.2); CARBON DIOXIDE 36 mmol/L (21-31); CHLORIDE 89 mmol/L (97-110); CREATININE 2.68 mg/dl (0.61-1.24); GLUCOSE 330 mg/dl (70-220); MAGNESIUM 2.7 mg/dl (1.7-2.5); PHOSPHORUS 5.1 mg/dl (2.5-4.9); POTASSIUM 3.3 mmol/L (3.5-5.1); SODIUM 140 mmol/L (135-144)
[2017-09-25] MEDS: CHLORTHALIDONE 25 MG TAB PO (08:08)
[2017-09-25] MEDS: PANTOPRAZOLE (EC) 40 MG TAB PO (08:08)
[2017-09-25] MEDS: PREGABALIN 100 MG CAP PO ×3 (08:09→20:16)
[2017-09-25] MEDS: ISOSORBIDE MONONITRATE(SR)60 MG TAB PO (08:09)
[2017-09-25] MEDS: ACETAZOLAMIDE 500 MG INJ IV (08:09)
[2017-09-25] MEDS: FERROUS SULFATE (EC) 325 MG TAB PO ×2 (08:09→20:16)
[2017-09-25] MEDS: ASPIRIN (EC) 81 MG TAB PO (08:09)
[2017-09-25] MEDS: MAGNESIUM OXIDE 400 MG TAB PO (08:09)
[2017-09-25] MEDS: CITALOPRAM 20 MG TAB PO (08:09)
[2017-09-25] MEDS: VICTOZA 1.8 MG SC (08:10)
[2017-09-25] MEDS: POTASSIUM CHLORIDE (SR) 20 MEQ TAB PO ×2 (08:21→11:49)
[2017-09-25] MEDS: SPIRONOLACTONE 25 MG TAB PO (08:22)
[2017-09-25] MEDS: HEPARIN 5,000 UNIT/0.5 ML VIAL SC ×2 (08:31→20:17)
[2017-09-25] MEDS: INSULIN ASPART [NOVOLOG] 3 ML PEN SC ×7 (08:31→20:20)
[2017-09-25 08:51] LABS: Allen Test ACCEPTAB; Arterial Base Excess 10.2 mmol/L (-3.0-3); Arterial Blood Gas Oxygen Sat 95.8 mmHG (95.0-98.0); Arterial COHb 0.7 % (0.0-3.0); Arterial HCO3 36.3 mmol/L (22.0-26.0); Arterial MetHb 0.1 % (0.0-1.5); Arterial Total Hemglobin 12.2 g/dl (12.0-18.0); Arterial pCO2 55.6 mmhg (35-45); MODE NASAL CANNULA; Site Right Radial
[2017-09-25] MEDS: SOD FERRIC GLUC COMPLX 125 MG in SOD CHLORIDE 0.9% 100 ML IVPB (16:50)
[2017-09-25] MEDS: ATORVASTATIN 80 MG TAB PO (20:16)
[2017-09-25] MEDS: INSULIN GLARGINE [LANtus] 3 ML PEN SC (20:18)
[2017-09-26] MEDS: ACCU-CHEK XX (02:24)
[2017-09-26] MEDS: BUMETANIDE 1 MG TAB PO ×2 (05:31→17:09)
[2017-09-26] MEDS: PANTOPRAZOLE (EC) 40 MG TAB PO (05:31)
[2017-09-26] MEDS ORDERED: INSULIN ASPART [NOVOLOG] 3 ML PEN SC (07:30)
[2017-09-26] MEDS: INSULIN ASPART [NOVOLOG] 3 ML PEN SC ×7 (07:59→21:00)
[2017-09-26] MEDS: FERROUS SULFATE (EC) 325 MG TAB PO ×2 (08:24→22:56)
[2017-09-26] MEDS: SPIRONOLACTONE 25 MG TAB PO (08:24)
[2017-09-26] MEDS: CITALOPRAM 20 MG TAB PO (08:24)
[2017-09-26] MEDS: ASPIRIN (EC) 81 MG TAB PO (08:24)
[2017-09-26] MEDS: MAGNESIUM OXIDE 400 MG TAB PO (08:24)
[2017-09-26] MEDS: ISOSORBIDE MONONITRATE(SR)60 MG TAB PO (08:24)
[2017-09-26] MEDS: PREGABALIN 100 MG CAP PO ×3 (08:24→22:56)
[2017-09-26] MEDS: ACETAZOLAMIDE 500 MG INJ IV (08:25)
[2017-09-26] MEDS: VICTOZA 1.8 MG SC (08:25)
[2017-09-26] MEDS: HEPARIN 5,000 UNIT/0.5 ML VIAL SC ×2 (08:26→22:49)
[2017-09-26 09:02] LABS: ADD MAN DIFF? NO
[2017-09-26 09:19] LABS: ABNORMAL IP MESSAGE 1; BASOPHIL # 0.1 10^3/ul (0.0-0.1); BASOPHILS % 0.8 % (0.0-2.0); EOSINOPHILS # 0.4 10^3/ul (0.0-0.5); EOSINOPHILS % 3.9 % (0.0-7.0); HEMATOCRIT 37.8 % (42.0-52.0); HEMOGLOBIN 11.6 g/dl (14.0-18.0); LYMPHOCYTES # 1.7 10^3/ul (0.8-2.9); MEAN CORPUSCULAR HEMOGLOBIN 23.4 pg (29.0-33.0); MEAN CORPUSCULAR HGB CONC 30.7 g/dl (32.0-37.0); MEAN CORPUSCULAR VOLUME 76.4 fl (82.0-101.0); MONOCYTE # 0.8 10^3/ul (0.3-0.9); NEUTROPHILS % 66.9 % (39.0-77.0); PLATELET COUNT 234 10^3/UL (140-415); POSITIVE DIFF @See below; RED BLOOD COUNT 4.95 10^6/ul (4.70-6.10); RED CELL DISTRIBUTION WIDTH 20.8 % (11.5-14.5)
[2017-09-26 09:38] LABS: ANION GAP 18 (8-16); BLOOD UREA NITROGEN 85 mg/dl (7-20); CALCIUM 9.3 mg/dl (8.4-10.2); CARBON DIOXIDE 39 mmol/L (21-31); CHLORIDE 86 mmol/L (97-110); CREATININE 2.91 mg/dl (0.61-1.24); GLUCOSE 165 mg/dl (70-220); MAGNESIUM 2.8 mg/dl (1.7-2.5); PHOSPHORUS 5.3 mg/dl (2.5-4.9); SODIUM 140 mmol/L (135-144)
[2017-09-26 09:42] LABS: POTASSIUM 2.7 mmol/L (3.5-5.1)
[2017-09-26] MEDS: POTASSIUM CHLORIDE (SR) 20 MEQ TAB PO ×2 (10:15→16:49)
[2017-09-26] MEDS: THIAMINE 100 MG TAB PO (11:49)
[2017-09-26 15:41] LABS: ANION GAP 18 (8-16); BLOOD UREA NITROGEN 82 mg/dl (7-20); CALCIUM 9.1 mg/dl (8.4-10.2); CARBON DIOXIDE 34 mmol/L (21-31); CHLORIDE 90 mmol/L (97-110); CREATININE 3.05 mg/dl (0.61-1.24); GLUCOSE 138 mg/dl (70-220); POTASSIUM 3.3 mmol/L (3.5-5.1); SODIUM 139 mmol/L (135-144)
[2017-09-26] MEDS: SOD FERRIC GLUC COMPLX 125 MG in SOD CHLORIDE 0.9% 100 ML IVPB (16:49)
[2017-09-26 21:55] LABS: ANION GAP 15 (8-16); BLOOD UREA NITROGEN 83 mg/dl (7-20); CALCIUM 9.1 mg/dl (8.4-10.2); CARBON DIOXIDE 37 mmol/L (21-31); CHLORIDE 89 mmol/L (97-110); CREATININE 3.24 mg/dl (0.61-1.24); GLUCOSE 100 mg/dl (70-220); POTASSIUM 3.4 mmol/L (3.5-5.1); SODIUM 138 mmol/L (135-144)
[2017-09-26] MEDS: ATORVASTATIN 80 MG TAB PO (22:56)
[2017-09-27] MEDS: INSULIN GLARGINE [LANtus] 3 ML PEN SC (00:30)
[2017-09-27] MEDS: ACCU-CHEK XX (02:00)
[2017-09-27] MEDS: PANTOPRAZOLE (EC) 40 MG TAB PO (06:22)
[2017-09-27] MEDS: BUMETANIDE 1 MG TAB PO (06:22)
[2017-09-27] MEDS: INSULIN ASPART [NOVOLOG] 3 ML PEN SC ×6 (07:59→17:25)
[2017-09-27] MEDS: THIAMINE 100 MG TAB PO (08:37)
[2017-09-27] MEDS: PREGABALIN 100 MG CAP PO ×2 (08:37→12:41)
[2017-09-27] MEDS: CITALOPRAM 20 MG TAB PO (08:37)
[2017-09-27] MEDS: MAGNESIUM OXIDE 400 MG TAB PO (08:37)
[2017-09-27] MEDS: SPIRONOLACTONE 25 MG TAB PO (08:38)
[2017-09-27] MEDS: ASPIRIN (EC) 81 MG TAB PO (08:38)
[2017-09-27] MEDS: FERROUS SULFATE (EC) 325 MG TAB PO (08:38)
[2017-09-27] MEDS: ISOSORBIDE MONONITRATE(SR)60 MG TAB PO (08:38)
[2017-09-27] MEDS: HEPARIN 5,000 UNIT/0.5 ML VIAL SC (08:40)
[2017-09-27] MEDS: VICTOZA 1.8 MG SC (08:41)
[2017-09-27 09:32] LABS: ANION GAP 20 (8-16); BLOOD UREA NITROGEN 87 mg/dl (7-20); CALCIUM 9.2 mg/dl (8.4-10.2); CARBON DIOXIDE 36 mmol/L (21-31); CHLORIDE 85 mmol/L (97-110); CREATININE 3.05 mg/dl (0.61-1.24); GLUCOSE 206 mg/dl (70-220); MAGNESIUM 2.9 mg/dl (1.7-2.5); POTASSIUM 3.3 mmol/L (3.5-5.1); SODIUM 138 mmol/L (135-144)
[2017-09-27 10:23] LABS: PHOSPHORUS 5.7 mg/dl (2.5-4.9)
[2017-09-27] MEDS: POTASSIUM CHLORIDE (SR) 20 MEQ TAB PO (18:01)
== END 2017-09-27 20:30 | disposition home or self-care (01) | DRG 280 ==
LOC: MS3 18:37 → MS4 09-23 23:42 → E/R 14:34
PROVIDERS: Internal Medicine
DX: I21.A1 Myocardial infarction type 2 (principal); I50.23 Acute on chronic systolic (congestive) heart failure; J96.00 Acute respiratory failure, unspecified whether with hypoxia or hypercapnia; I13.0 Hypertensive heart and chronic kidney disease with heart failure and stage 1 through stage 4 chronic kidney disease, or unspecified chronic kidney disease; N18.4 Chronic kidney disease, stage 4 (severe); N17.9 Acute kidney failure, unspecified; Z68.43 Body mass index [BMI] 50.0-59.9, adult; E11.22 Type 2 diabetes mellitus with diabetic chronic kidney disease; E11.40 Type 2 diabetes mellitus with diabetic neuropathy, unspecified; F17.210 Nicotine dependence, cigarettes, uncomplicated; D50.9 Iron deficiency anemia, unspecified; E11.65 Type 2 diabetes mellitus with hyperglycemia; E66.01 Morbid (severe) obesity due to excess calories; E83.42 Hypomagnesemia; E78.5 Hyperlipidemia, unspecified; F32.9 Major depressive disorder, single episode, unspecified; I25.10 Atherosclerotic heart disease of native coronary artery without angina pectoris; I48.0 Paroxysmal atrial fibrillation; E87.6 Hypokalemia; G47.33 Obstructive sleep apnea (adult) (pediatric); L21.9 Seborrheic dermatitis, unspecified; I25.5 Ischemic cardiomyopathy; I25.2 Old myocardial infarction; Z79.4 Long term (current) use of insulin; Z79.01 Long term (current) use of anticoagulants; Z95.5 Presence of coronary angioplasty implant and graft; Z95.810 Presence of automatic (implantable) cardiac defibrillator; Z91.11 Patient's noncompliance with dietary regimen; Z91.19 Patient's noncompliance with other medical treatment and regimen
CPT/HCPCS: 36415; 36600; 71045; 80048; 80053; 81003; 82043; 82550; 82553; 82728; 82803; 82962; 83036; 83540; 83735; 84100; 84155; 84300; 84484; 85025; 85378; 85610; 85730; 93005; 94660; 96372; 96374; 96376; 99291-25; J1120

== ENCOUNTER 2017-09-30 18:50 | Emergency (ER) | payer MEDICARE, OTHER ==
[2017-09-30 19:09] LABS: ADD MAN DIFF? NO
[2017-09-30 19:12] LABS: ABNORMAL IP MESSAGE 1; BASOPHIL # 0.1 10^3/ul (0.0-0.1); BASOPHILS % 0.6 % (0.0-2.0); EOSINOPHILS # 0.1 10^3/ul (0.0-0.5); EOSINOPHILS % 1.2 % (0.0-7.0); HEMATOCRIT 38.8 % (42.0-52.0); HEMOGLOBIN 12.2 g/dl (14.0-18.0); LYMPHOCYTES # 1.6 10^3/ul (0.8-2.9); LYMPHOCYTES % 15.7 % (15.0-51.0); MEAN CORPUSCULAR HEMOGLOBIN 24.3 pg (29.0-33.0); MEAN CORPUSCULAR HGB CONC 31.4 g/dl (32.0-37.0); MEAN CORPUSCULAR VOLUME 77.3 fl (82.0-101.0); MEAN PLATELET VOLUME 10.7 fl (7.4-10.4); MONOCYTE # 0.9 10^3/ul (0.3-0.9); MONOCYTES % 8.5 % (0.0-11.0); NEUTROPHIL # 7.4 10^3/ul (1.6-7.5); NEUTROPHILS % 73.8 % (39.0-77.0); PLATELET COUNT 199 10^3/UL (140-415); POSITIVE DIFF @See below; RED BLOOD COUNT 5.02 10^6/ul (4.70-6.10); RED CELL DISTRIBUTION WIDTH 22.8 % (11.5-14.5)
[2017-09-30 19:28] LABS: ANION GAP 16 (8-16); BLOOD UREA NITROGEN 90 mg/dl (7-20); CALCIUM 9.4 mg/dl (8.4-10.2); CARBON DIOXIDE 28 mmol/L (21-31); CHLORIDE 101 mmol/L (97-110); CREATININE 2.88 mg/dl (0.61-1.24); GLUCOSE 280 mg/dl (70-220); POTASSIUM 5.1 mmol/L (3.5-5.1); SODIUM 140 mmol/L (135-144)
== END 2017-09-30 20:55 | disposition home or self-care (01) ==
LOC: E/R 18:50
DX: N18.9 Chronic kidney disease, unspecified (principal); I50.9 Heart failure, unspecified; E11.9 Type 2 diabetes mellitus without complications; Z79.4 Long term (current) use of insulin; Z79.82 Long term (current) use of aspirin; Z91.19 Patient's noncompliance with other medical treatment and regimen
CPT/HCPCS: 36415; 71045; 80048; 82962; 84484; 85025; 93005; 99285-25

== ENCOUNTER 2017-11-25 07:05 | Inpatient (IN) | payer MEDICARE, OTHER ==
[2017-11-25 07:28] LABS: ADD MAN DIFF? NO
[2017-11-25 07:33] LABS: ABNORMAL IP MESSAGE 1; BASOPHILS % 0.4 % (0.0-2.0); EOSINOPHILS # 0.2 10^3/ul (0.0-0.5); HEMATOCRIT 45.9 % (42.0-52.0); HEMOGLOBIN 14.6 g/dl (14.0-18.0); LYMPHOCYTES # 1.8 10^3/ul (0.8-2.9); LYMPHOCYTES % 22.5 % (15.0-51.0); MEAN CORPUSCULAR HEMOGLOBIN 26.4 pg (29.0-33.0); MEAN CORPUSCULAR HGB CONC 31.8 g/dl (32.0-37.0); MEAN CORPUSCULAR VOLUME 82.9 fl (82.0-101.0); MONOCYTE # 0.6 10^3/ul (0.3-0.9); NEUTROPHIL # 5.2 10^3/ul (1.6-7.5); NEUTROPHILS % 66.7 % (39.0-77.0); PLATELET COUNT 162 10^3/UL (140-415); POSITIVE DIFF @See below; RED BLOOD COUNT 5.54 10^6/ul (4.70-6.10); RED CELL DISTRIBUTION WIDTH 28.7 % (11.5-14.5)
[2017-11-25 07:33] LABS: WHITE BLOOD COUNT 7.9 10^3/ul (4.8-10.8)
[2017-11-25] MEDS: SOD CHLORIDE 0.9% 500 ML IV (07:33)
[2017-11-25 07:53] LABS: ANION GAP 19 (8-16); BLOOD UREA NITROGEN 46 mg/dl (7-20); CALCIUM 9.1 mg/dl (8.4-10.2); CARBON DIOXIDE 26 mmol/L (21-31); CHLORIDE 103 mmol/L (97-110); CREATININE 2.48 mg/dl (0.61-1.24); GLUCOSE 302 mg/dl (70-220); SODIUM 143 mmol/L (135-144)
[2017-11-25 08:04] LABS: TROPONIN-I 0.048 ng/ml (0.000-0.120)
[2017-11-25] MEDS: AMIODARONE 150MG/D5W BOLUS 100 ML IV (08:32)
[2017-11-25] MEDS: AMIODARONE 900 MG in DEXTROSE 5% 482 ML IV (08:49)
[2017-11-25] MEDS ORDERED: ACETAMINOPHEN 325 MG TAB PO (11:00)
[2017-11-25] MEDS ORDERED: ONDANSETRON 4 MG INJ IV ×2 (11:00→12:30)
[2017-11-25] MEDS: SOD CHLORIDE 0.9% 1,000 ML IV (12:06)
[2017-11-25] MEDS ORDERED: ZOLPIDEM 5 MG TAB PO (12:30)
[2017-11-25] MEDS ORDERED: LORAZEPAM 0.5 MG TAB PO (12:30)
[2017-11-25] MEDS ORDERED: NITROGLYCERIN (SL) 0.4 MG TAB SL (12:30)
[2017-11-25] MEDS ORDERED: DEXTROSE 50% 50 ML SYRINGE IV ×2 (13:00)
[2017-11-25] MEDS ORDERED: GLUCOSE GEL 15 GRAM TUBE PO ×2 (13:00)
[2017-11-25] MEDS ORDERED: GLUCAGON 1 MG INJ IM (13:00)
[2017-11-25] MEDS ORDERED: GLUCOSE GEL 15 GRAM TUBE BUCCAL (13:00)
[2017-11-25] MEDS: PREGABALIN 100 MG CAP PO ×2 (13:45→21:59)
[2017-11-25] MEDS: DOCUSATE SODIUM 100 MG CAP PO ×2 (13:45→23:40)
[2017-11-25 14:01] LABS: CREATINE KINASE 102 IU/L (23-200)
[2017-11-25 14:13] LABS: CK INDEX 3.1; CK-MB 3.21 ng/ml (0.0-2.4); TROPONIN-I 0.068 ng/ml (0.000-0.120)
[2017-11-25] MEDS ORDERED: morphine 2 MG INJ IV (18:00)
[2017-11-25] MEDS: INSULIN ASPART [NOVOLOG] 3 ML PEN SC ×3 (18:11→22:19)
[2017-11-25 19:50] LABS: CREATINE KINASE 116 IU/L (23-200)
[2017-11-25 20:02] LABS: CK INDEX 3.1; CK-MB 3.59 ng/ml (0.0-2.4); TROPONIN-I 0.085 ng/ml (0.000-0.120)
[2017-11-25] MEDS: ATORVASTATIN 80 MG TAB PO (21:59)
[2017-11-25] MEDS: FISH OIL 1,000 MG CAP PO (21:59)
[2017-11-25] MEDS: SOTALOL 80 MG TAB PO (23:34)
[2017-11-25] MEDS: INSULIN GLARGINE [LANTus] (100 UNITS/ML) SYG SC (23:34)
[2017-11-25] MEDS: ACETAMINOPHEN 325 MG TAB PO (23:38)
[2017-11-26] MEDS: ACCU-CHEK XX (02:00)
[2017-11-26 06:17] LABS: ADD UMIC NO; UR ASCORBIC ACID NEGATIVE (NEGATIVE); UR BILIRUBIN (Dip) NEGATIVE (NEGATIVE); UR BLOOD (Dip) NEGATIVE (NEGATIVE); UR CLARITY CLEAR (CLEAR); UR COLOR YELLOW (YELLOW); UR GLUCOSE (Dip) NEGATIVE (NEGATIVE); UR KETONES (Dip) NEGATIVE (NEGATIVE); UR LEUKOCYTE ESTERASE (Dip) NEGATIVE Leu/ul (NEGATIVE); UR NITRITE (Dip) NEGATIVE (NEGATIVE); UR SPECIFIC GRAVITY (Dip) 1.013 (1.003-1.030); UR TOTAL PROTEIN (Dip) NEGATIVE (NEGATIVE); UR UROBILINOGEN (Dip) NEGATIVE (NEGATIVE)
[2017-11-26] MEDS: BUMETANIDE 1 MG TAB PO ×2 (06:19→18:08)
[2017-11-26 06:27] LABS: SODIUM,URINE RANDOM < 13 mmol/L (30-90)
[2017-11-26 06:29] LABS: AMPHETAMINE/METHAMPHETAMINE Negative (NEGATIVE); BARBITURATES Negative (NEGATIVE); BENZODIAZEPINES Negative (NEGATIVE); CANNABINOIDS Negative (NEGATIVE); COCAINE Negative (NEGATIVE); OPIATES Negative (NEGATIVE)
[2017-11-26 06:50] LABS: ADD MAN DIFF? NO
[2017-11-26 07:07] LABS: ABNORMAL IP MESSAGE 1; BASOPHILS % 0.4 % (0.0-2.0); EOSINOPHILS # 0.2 10^3/ul (0.0-0.5); EOSINOPHILS % 2.7 % (0.0-7.0); HEMATOCRIT 41.1 % (42.0-52.0); HEMOGLOBIN 13.2 g/dl (14.0-18.0); LYMPHOCYTES % 24.7 % (15.0-51.0); MEAN CORPUSCULAR HEMOGLOBIN 26.4 pg (29.0-33.0); MEAN CORPUSCULAR HGB CONC 32.1 g/dl (32.0-37.0); MEAN CORPUSCULAR VOLUME 82.2 fl (82.0-101.0); MONOCYTE # 0.7 10^3/ul (0.3-0.9); MONOCYTES % 8.5 % (0.0-11.0); NEUTROPHIL # 5.1 10^3/ul (1.6-7.5); NEUTROPHILS % 63.5 % (39.0-77.0); PLATELET COUNT 152 10^3/UL (140-415); POSITIVE DIFF @See below; RED CELL DISTRIBUTION WIDTH 28.2 % (11.5-14.5)
[2017-11-26 07:19] LABS: ALANINE AMINOTRANSFERASE 49 IU/L (13-69); ALKALINE PHOSPHATASE 167 IU/L (42-121); ASPARTATE AMINO TRANSFERASE 34 IU/L (15-46); BILIRUBIN,INDIRECT 0.4 mg/dl (0-1.1); BILIRUBIN,TOTAL 0.4 mg/dl (0.2-1.3); TOTAL PROTEIN 6.2 g/dl (6.1-8.1)
[2017-11-26 07:47] LABS: ANION GAP 15 (8-16); BLOOD UREA NITROGEN 44 mg/dl (7-20); CALCIUM 8.6 mg/dl (8.4-10.2); CARBON DIOXIDE 24 mmol/L (21-31); CHLORIDE 106 mmol/L (97-110); CREATININE 2.06 mg/dl (0.61-1.24); GLUCOSE 310 mg/dl (70-220); MAGNESIUM 2.5 mg/dl (1.7-2.5); SODIUM 141 mmol/L (135-144)
[2017-11-26 07:57] LABS: HEMOGLOBIN A1C 9.5 % (0-5.9)
[2017-11-26 08:34] LABS: THYROID STIMULATING HORMONE 0.832 MIU/L (0.465-4.680)
[2017-11-26] MEDS: INSULIN ASPART [NOVOLOG] 3 ML PEN SC ×7 (08:42→21:00)
[2017-11-26] MEDS ORDERED: POTASSIUM CHLORIDE (SR) 20 MEQ TAB PO (09:00)
[2017-11-26] MEDS ORDERED: MAGNESIUM OXIDE 400 MG TAB PO (09:00)
[2017-11-26] MEDS: FISH OIL 1,000 MG CAP PO ×2 (09:23→21:57)
[2017-11-26] MEDS: ASPIRIN (EC) 81 MG TAB PO (09:23)
[2017-11-26] MEDS: SOTALOL 80 MG TAB PO ×2 (09:24→21:56)
[2017-11-26] MEDS: SPIRONOLACTONE 25 MG TAB PO (09:24)
[2017-11-26] MEDS: MAGNESIUM OXIDE 400 MG TAB PO (09:25)
[2017-11-26] MEDS: CITALOPRAM 20 MG TAB PO (09:25)
[2017-11-26] MEDS: ENOXAPARIN 40 MG/0.4 ML SYG SC (09:28)
[2017-11-26] MEDS: ACETAZOLAMIDE 250 MG TAB PO (09:33)
[2017-11-26] MEDS: PREGABALIN 100 MG CAP PO ×3 (09:34→21:57)
[2017-11-26] MEDS: DOCUSATE SODIUM 100 MG CAP PO ×2 (12:30→21:57)
[2017-11-26] MEDS: ATORVASTATIN 80 MG TAB PO (21:57)
[2017-11-26] MEDS: HEPARIN 5,000 UNIT/0.5 ML VIAL SC (22:02)
[2017-11-26] MEDS: INSULIN GLARGINE [LANTus] (100 UNITS/ML) SYG SC (22:58)
[2017-11-27] MEDS: ACCU-CHEK XX (00:23)
[2017-11-27] MEDS: BUMETANIDE 1 MG TAB PO (06:10)
[2017-11-27 07:01] LABS: ADD MAN DIFF? NO
[2017-11-27 07:07] LABS: WHITE BLOOD COUNT 6.9 10^3/ul (4.8-10.8)
[2017-11-27 07:07] LABS: ABNORMAL IP MESSAGE 1; BASOPHILS % 0.4 % (0.0-2.0); EOSINOPHILS # 0.2 10^3/ul (0.0-0.5); EOSINOPHILS % 3.1 % (0.0-7.0); HEMATOCRIT 41.8 % (42.0-52.0); HEMOGLOBIN 13.4 g/dl (14.0-18.0); LYMPHOCYTES # 1.8 10^3/ul (0.8-2.9); LYMPHOCYTES % 26.5 % (15.0-51.0); MEAN CORPUSCULAR HEMOGLOBIN 25.9 pg (29.0-33.0); MEAN CORPUSCULAR HGB CONC 32.1 g/dl (32.0-37.0); MEAN CORPUSCULAR VOLUME 80.9 fl (82.0-101.0); MONOCYTE # 0.6 10^3/ul (0.3-0.9); MONOCYTES % 9.3 % (0.0-11.0); NEUTROPHIL # 4.2 10^3/ul (1.6-7.5); NEUTROPHILS % 60.4 % (39.0-77.0); PLATELET COUNT 155 10^3/UL (140-415); POSITIVE DIFF @See below; RED BLOOD COUNT 5.17 10^6/ul (4.70-6.10); RED CELL DISTRIBUTION WIDTH 28.4 % (11.5-14.5)
[2017-11-27 07:51] LABS: ANION GAP 14 (8-16); BLOOD UREA NITROGEN 42 mg/dl (7-20); CALCIUM 8.7 mg/dl (8.4-10.2); CARBON DIOXIDE 24 mmol/L (21-31); CHLORIDE 107 mmol/L (97-110); CREATININE 1.89 mg/dl (0.61-1.24); GLUCOSE 205 mg/dl (70-220); MAGNESIUM 2.2 mg/dl (1.7-2.5); PHOSPHORUS 4.5 mg/dl (2.5-4.9); POTASSIUM 4.1 mmol/L (3.5-5.1); SODIUM 141 mmol/L (135-144)
[2017-11-27] MEDS: INSULIN ASPART [NOVOLOG] 3 ML PEN SC ×4 (08:51→12:35)
[2017-11-27] MEDS: MAGNESIUM OXIDE 400 MG TAB PO (09:15)
[2017-11-27] MEDS: FISH OIL 1,000 MG CAP PO (09:15)
[2017-11-27] MEDS: CITALOPRAM 20 MG TAB PO (09:15)
[2017-11-27] MEDS: ACETAZOLAMIDE 250 MG TAB PO (09:15)
[2017-11-27] MEDS: ASPIRIN (EC) 81 MG TAB PO (09:15)
[2017-11-27] MEDS: SOTALOL 80 MG TAB PO (09:17)
[2017-11-27] MEDS: PREGABALIN 100 MG CAP PO ×2 (09:27→12:38)
[2017-11-27] MEDS: SPIRONOLACTONE 25 MG TAB PO (09:27)
[2017-11-27] MEDS: HEPARIN 5,000 UNIT/0.5 ML VIAL SC (09:29)
[2017-11-27] MEDS: DOCUSATE SODIUM 100 MG CAP PO (12:38)
[2017-11-29 16:17] LABS: CREATININE, RANDOM URINE 118 mg/dL (20-370); MICROALBUMIN 7.3 mg/dL; MICROALBUMIN/CREATININE RATIO 62 (<30)
== END 2017-11-27 16:10 | disposition home or self-care (01) | DRG 309 ==
LOC: E/R 07:05 → TEL 10:41
DX: I47.2 Ventricular tachycardia (principal); I13.0 Hypertensive heart and chronic kidney disease with heart failure and stage 1 through stage 4 chronic kidney disease, or unspecified chronic kidney disease; I50.22 Chronic systolic (congestive) heart failure; Z68.43 Body mass index [BMI] 50.0-59.9, adult; N18.4 Chronic kidney disease, stage 4 (severe); E11.22 Type 2 diabetes mellitus with diabetic chronic kidney disease; E11.65 Type 2 diabetes mellitus with hyperglycemia; E66.01 Morbid (severe) obesity due to excess calories; I25.5 Ischemic cardiomyopathy; E78.5 Hyperlipidemia, unspecified; R55 Syncope and collapse; D63.1 Anemia in chronic kidney disease; G47.33 Obstructive sleep apnea (adult) (pediatric); H91.91 Unspecified hearing loss, right ear; I25.10 Atherosclerotic heart disease of native coronary artery without angina pectoris; N52.9 Male erectile dysfunction, unspecified; F17.200 Nicotine dependence, unspecified, uncomplicated; Z86.73 Personal history of transient ischemic attack (TIA), and cerebral infarction without residual deficits; Z95.5 Presence of coronary angioplasty implant and graft; Z95.810 Presence of automatic (implantable) cardiac defibrillator; Z79.4 Long term (current) use of insulin; Z79.82 Long term (current) use of aspirin
CPT/HCPCS: 36415; 71045; 80048; 80076; 80307; 81003; 82043; 82550; 82553; 82962; 83036; 83735; 84100; 84155; 84300; 84443; 84484; 85025; 93005; 93880; 94660; 96361; 96365; 99291-25

== ENCOUNTER 2017-12-06 11:06 | Inpatient (IN) | payer MEDICARE, OTHER ==
[2017-12-06 11:31] LABS: ADD MAN DIFF? NO
[2017-12-06 11:34] LABS: ABNORMAL IP MESSAGE 1; BASOPHILS % 0.5 % (0.0-2.0); EOSINOPHILS # 0.1 10^3/ul (0.0-0.5); EOSINOPHILS % 1.6 % (0.0-7.0); HEMATOCRIT 42.3 % (42.0-52.0); HEMOGLOBIN 13.5 g/dl (14.0-18.0); LYMPHOCYTES # 1.5 10^3/ul (0.8-2.9); LYMPHOCYTES % 18.5 % (15.0-51.0); MEAN CORPUSCULAR HEMOGLOBIN 26.4 pg (29.0-33.0); MEAN CORPUSCULAR HGB CONC 31.9 g/dl (32.0-37.0); MEAN CORPUSCULAR VOLUME 82.6 fl (82.0-101.0); MONOCYTE # 0.5 10^3/ul (0.3-0.9); MONOCYTES % 5.9 % (0.0-11.0); NEUTROPHIL # 6.1 10^3/ul (1.6-7.5); POSITIVE DIFF @See below; RED BLOOD COUNT 5.12 10^6/ul (4.70-6.10); RED CELL DISTRIBUTION WIDTH 27.9 % (11.5-14.5)
[2017-12-06 11:34] LABS: WHITE BLOOD COUNT 8.3 10^3/ul (4.8-10.8)
[2017-12-06 11:36] LABS: PLATELET COUNT 191 10^3/UL (140-415)
[2017-12-06 11:55] LABS: ALANINE AMINOTRANSFERASE 38 IU/L (13-69); ALBUMIN 3.3 g/dl (3.3-4.9); ALBUMIN/GLOBULIN RATIO 0.84; ALKALINE PHOSPHATASE 157 IU/L (42-121); ANION GAP 15 (8-16); ASPARTATE AMINO TRANSFERASE 28 IU/L (15-46); BILIRUBIN,INDIRECT 0.5 mg/dl (0-1.1); BILIRUBIN,TOTAL 0.5 mg/dl (0.2-1.3); BLOOD UREA NITROGEN 32 mg/dl (7-20); CALCIUM 8.8 mg/dl (8.4-10.2); CARBON DIOXIDE 27 mmol/L (21-31); CHLORIDE 102 mmol/L (97-110); CREATININE 2.03 mg/dl (0.61-1.24); GLUCOSE 367 mg/dl (70-220); POTASSIUM 4.6 mmol/L (3.5-5.1); SODIUM 139 mmol/L (135-144); TOTAL PROTEIN 7.2 g/dl (6.1-8.1)
[2017-12-06 11:58] LABS: PARTIAL THROMBOPLASTIN TIME 24.9 Sec (25.0-35.0); PROTIME 13.3 Sec (11.9-14.9)
[2017-12-06 12:08] LABS: TROPONIN-I 0.044 ng/ml (0.000-0.120)
[2017-12-06] MEDS ORDERED: morphine 2 MG INJ IV (15:00)
[2017-12-06] MEDS ORDERED: DOCUSATE SODIUM 100 MG CAP PO (15:00)
[2017-12-06] MEDS ORDERED: NA PHOSPHATE/BIPHOS 133 ML ENEMA PR (15:00)
[2017-12-06] MEDS ORDERED: ONDANSETRON 4 MG INJ IV (15:00)
[2017-12-06] MEDS ORDERED: HYDROCODONE/APAP (5/325) TAB PO (15:00)
[2017-12-06] MEDS ORDERED: LORAZEPAM 2 MG INJ IV (15:00)
[2017-12-06] MEDS ORDERED: MAGNESIUM HYDROXIDE 30ML CUP PO (15:00)
[2017-12-06] MEDS ORDERED: NACL 0.9% 3 ML SYG IV (15:00)
[2017-12-06] MEDS ORDERED: ACETAMINOPHEN 325 MG TAB PO (15:00)
[2017-12-06 16:02] LABS: MAGNESIUM 2.3 mg/dl (1.7-2.5)
[2017-12-06 16:02] LABS: PHOSPHORUS 4.2 mg/dl (2.5-4.9)
[2017-12-06 16:03] LABS: CREATINE KINASE 113 IU/L (23-200)
[2017-12-06 16:16] LABS: CK INDEX 2.1; CK-MB 2.35 ng/ml (0.0-2.4); TROPONIN-I 0.049 ng/ml (0.000-0.120)
[2017-12-06 16:58] LABS: FREE T4 (FREE THYROXINE) 1.17 ng/dl (0.64-1.79)
[2017-12-06] MEDS ORDERED: INSULIN REGULAR HUMAN 60 UNIT SQ (17:25)
[2017-12-06] MEDS ORDERED: BUMETANIDE 1 MG INJ IV (18:00)
[2017-12-06] MEDS ORDERED: DEXTROSE 50% 50 ML SYRINGE IV ×2 (18:30)
[2017-12-06] MEDS ORDERED: GLUCAGON 1 MG INJ IM (18:30)
[2017-12-06] MEDS ORDERED: GLUCOSE GEL 15 GRAM TUBE PO ×2 (18:30)
[2017-12-06] MEDS ORDERED: GLUCOSE GEL 15 GRAM TUBE BUCCAL (18:30)
[2017-12-06] MEDS: INSULIN ASPART [NOVOLOG] 3 ML PEN SC ×3 (18:34→22:08)
[2017-12-06 18:53] LABS: CK-MB 2.41 ng/ml (0.0-2.4); TROPONIN-I 0.052 ng/ml (0.000-0.120)
[2017-12-06] MEDS: MEXILETINE 150 MG CAP PO (19:04)
[2017-12-06 19:14] LABS: CK INDEX 2.1; CREATINE KINASE 117 IU/L (23-200)
[2017-12-06] MEDS: DOCUSATE SODIUM 100 MG CAP PO (20:22)
[2017-12-06] MEDS: ATORVASTATIN 80 MG TAB PO (20:22)
[2017-12-06] MEDS: BUMETANIDE 2 MG in DEXTROSE 5% 17 ML IV (20:23)
[2017-12-06] MEDS: HEPARIN 5,000 UNIT/0.5 ML VIAL SC (20:24)
[2017-12-06] MEDS: SOTALOL 80 MG TAB PO (20:26)
[2017-12-06] MEDS: PREGABALIN 100 MG CAP PO (20:29)
[2017-12-06 22:11] LABS: CREATINE KINASE 115 IU/L (23-200)
[2017-12-06 22:24] LABS: CK INDEX 1.9; CK-MB 2.15 ng/ml (0.0-2.4); TROPONIN-I 0.048 ng/ml (0.000-0.120)
[2017-12-07 01:14] LABS: CREATINE KINASE 106 IU/L (23-200)
[2017-12-07 01:28] LABS: CK INDEX 1.8; CK-MB 1.91 ng/ml (0.0-2.4)
[2017-12-07] MEDS: MEXILETINE 150 MG CAP PO ×3 (06:04→20:44)
[2017-12-07 06:52] LABS: ADD MAN DIFF? NO
[2017-12-07 06:59] LABS: WHITE BLOOD COUNT 8.1 10^3/ul (4.8-10.8)
[2017-12-07 06:59] LABS: ABNORMAL IP MESSAGE 1; BASOPHIL # 0.1 10^3/ul (0.0-0.1); BASOPHILS % 0.6 % (0.0-2.0); EOSINOPHILS # 0.2 10^3/ul (0.0-0.5); EOSINOPHILS % 2.3 % (0.0-7.0); HEMOGLOBIN 13.2 g/dl (14.0-18.0); LYMPHOCYTES # 1.8 10^3/ul (0.8-2.9); LYMPHOCYTES % 21.9 % (15.0-51.0); MEAN CORPUSCULAR HEMOGLOBIN 26.1 pg (29.0-33.0); MEAN CORPUSCULAR HGB CONC 31.4 g/dl (32.0-37.0); MEAN CORPUSCULAR VOLUME 83.2 fl (82.0-101.0); MONOCYTE # 0.6 10^3/ul (0.3-0.9); MONOCYTES % 7.8 % (0.0-11.0); NEUTROPHIL # 5.4 10^3/ul (1.6-7.5); NEUTROPHILS % 66.8 % (39.0-77.0); PLATELET COUNT 183 10^3/UL (140-415); POSITIVE DIFF @See below; RED BLOOD COUNT 5.05 10^6/ul (4.70-6.10); RED CELL DISTRIBUTION WIDTH 27.7 % (11.5-14.5)
[2017-12-07] MEDS: BUMETANIDE 2 MG in DEXTROSE 5% 17 ML IV (07:01)
[2017-12-07 07:41] LABS: ANION GAP 14 (8-16); BLOOD UREA NITROGEN 34 mg/dl (7-20); CALCIUM 8.8 mg/dl (8.4-10.2); CARBON DIOXIDE 25 mmol/L (21-31); CHLORIDE 103 mmol/L (97-110); CREATININE 1.99 mg/dl (0.61-1.24); GLUCOSE 320 mg/dl (70-220); POTASSIUM 4.3 mmol/L (3.5-5.1); SODIUM 138 mmol/L (135-144)
[2017-12-07 08:00] LABS: HEMOGLOBIN A1C 9.7 % (0-5.9)
[2017-12-07] MEDS: INSULIN ASPART [NOVOLOG] 3 ML PEN SC ×5 (08:07→17:39)
[2017-12-07 08:11] LABS: CHOL/HDL RATIO 4.6 RATIO; HDL CHOLESTEROL 20 mg/dl (28-71); LDL CHOLESTEROL,CALCULATED 27 mg/dl; THYROID STIMULATING HORMONE 0.796 MIU/L (0.465-4.680); TRIGLYCERIDES 224 mg/dl (0-149)
[2017-12-07 08:11] LABS: CHOLESTEROL 92 mg/dl (100-200)
[2017-12-07] MEDS: CITALOPRAM 20 MG TAB PO (08:19)
[2017-12-07] MEDS: PREGABALIN 100 MG CAP PO ×3 (08:20→20:43)
[2017-12-07] MEDS: FAMOTIDINE 20 MG TAB PO (08:20)
[2017-12-07] MEDS: DOCUSATE SODIUM 100 MG CAP PO ×2 (08:20→20:43)
[2017-12-07] MEDS: SOTALOL 80 MG TAB PO ×2 (08:22→20:45)
[2017-12-07] MEDS: HEPARIN 5,000 UNIT/0.5 ML VIAL SC ×2 (09:35→21:01)
[2017-12-07] MEDS ORDERED: INSULIN GLARGINE [LANTus] (100 UNITS/ML) SYG SC (10:00)
[2017-12-07] MEDS: ASPIRIN 81 MG TAB PO (12:29)
[2017-12-07] MEDS: INSULIN GLARGINE [LANTus] (100 UNITS/ML) SYG SC ×2 (12:35→21:01)
[2017-12-07] MEDS: BUMETANIDE 1 MG TAB PO (17:36)
[2017-12-07] MEDS ORDERED: BUMETANIDE 0.5 MG TAB PO (18:00)
[2017-12-07 19:27] LABS: GLUCOSE 501 mg/dl (70-220)
[2017-12-07] MEDS: ATORVASTATIN 80 MG TAB PO (20:43)
[2017-12-08] MEDS: ACCU-CHEK XX (02:13)
[2017-12-08] MEDS: MEXILETINE 150 MG CAP PO ×2 (05:54→15:00)
[2017-12-08] MEDS: BUMETANIDE 1 MG TAB PO (05:54)
[2017-12-08 06:39] LABS: ADD MAN DIFF? NO
[2017-12-08 06:59] LABS: WHITE BLOOD COUNT 7.3 10^3/ul (4.8-10.8)
[2017-12-08 06:59] LABS: ABNORMAL IP MESSAGE 1; BASOPHILS % 0.5 % (0.0-2.0); EOSINOPHILS # 0.2 10^3/ul (0.0-0.5); HEMATOCRIT 41.9 % (42.0-52.0); HEMOGLOBIN 13.4 g/dl (14.0-18.0); LYMPHOCYTES # 2.4 10^3/ul (0.8-2.9); LYMPHOCYTES % 32.6 % (15.0-51.0); MEAN CORPUSCULAR HEMOGLOBIN 26.5 pg (29.0-33.0); MEAN CORPUSCULAR VOLUME 82.8 fl (82.0-101.0); MONOCYTE # 0.6 10^3/ul (0.3-0.9); MONOCYTES % 7.8 % (0.0-11.0); NEUTROPHIL # 4.1 10^3/ul (1.6-7.5); NEUTROPHILS % 55.4 % (39.0-77.0); NUCLEATED RED BLOOD CELLS% 0.3 /100WBC (0.0-0.0); PLATELET COUNT 192 10^3/UL (140-415); POSITIVE DIFF @See below; RED BLOOD COUNT 5.06 10^6/ul (4.70-6.10); RED CELL DISTRIBUTION WIDTH 27.5 % (11.5-14.5)
[2017-12-08 07:19] LABS: ANION GAP 17 (8-16); BLOOD UREA NITROGEN 45 mg/dl (7-20); CALCIUM 8.8 mg/dl (8.4-10.2); CARBON DIOXIDE 25 mmol/L (21-31); CHLORIDE 100 mmol/L (97-110); CREATININE 2.18 mg/dl (0.61-1.24); GLUCOSE 248 mg/dl (70-220); POTASSIUM 4.5 mmol/L (3.5-5.1); SODIUM 137 mmol/L (135-144)
[2017-12-08] MEDS: INSULIN ASPART [NOVOLOG] 3 ML PEN SC ×3 (07:50→12:28)
[2017-12-08] MEDS: ASPIRIN 81 MG TAB PO (09:02)
[2017-12-08] MEDS: CITALOPRAM 20 MG TAB PO (09:02)
[2017-12-08] MEDS: FAMOTIDINE 20 MG TAB PO (09:02)
[2017-12-08] MEDS: DOCUSATE SODIUM 100 MG CAP PO (09:02)
[2017-12-08] MEDS: LINAGLIPTIN 5 MG TABLET PO (09:02)
[2017-12-08] MEDS: SOTALOL 80 MG TAB PO (09:03)
[2017-12-08] MEDS: INSULIN GLARGINE [LANTus] (100 UNITS/ML) SYG SC (09:04)
[2017-12-08] MEDS: HEPARIN 5,000 UNIT/0.5 ML VIAL SC (09:05)
[2017-12-08] MEDS: PREGABALIN 100 MG CAP PO ×2 (09:06→12:25)
[2017-12-08] MEDS ORDERED: INSULIN ASPART [NOVOLOG] 3 ML PEN SC ×2 (17:25)
[2017-12-08] MEDS ORDERED: NPH, HUMAN INSULIN ISOPHANE 3ML VIAL SC (20:00)
[2017-12-08] MEDS ORDERED: INSULIN GLARGINE [LANTus] (100 UNITS/ML) SYG SC (21:00)
== END 2017-12-08 16:19 | disposition home or self-care (01) | DRG 308 ==
LOC: E/R 11:06 → TEL 12:36
PROC: 4B02XTZ Measurement of Cardiac Defibrillator, External Approach (ICD-10-PCS; principal; 2017-12-06)
DX: I47.2 Ventricular tachycardia (principal); I50.23 Acute on chronic systolic (congestive) heart failure; I13.0 Hypertensive heart and chronic kidney disease with heart failure and stage 1 through stage 4 chronic kidney disease, or unspecified chronic kidney disease; N18.4 Chronic kidney disease, stage 4 (severe); Z68.43 Body mass index [BMI] 50.0-59.9, adult; R55 Syncope and collapse; I25.5 Ischemic cardiomyopathy; D63.1 Anemia in chronic kidney disease; E11.22 Type 2 diabetes mellitus with diabetic chronic kidney disease; E11.65 Type 2 diabetes mellitus with hyperglycemia; E78.5 Hyperlipidemia, unspecified; E87.6 Hypokalemia; E66.01 Morbid (severe) obesity due to excess calories; F17.200 Nicotine dependence, unspecified, uncomplicated; G47.33 Obstructive sleep apnea (adult) (pediatric); I25.10 Atherosclerotic heart disease of native coronary artery without angina pectoris; Z86.73 Personal history of transient ischemic attack (TIA), and cerebral infarction without residual deficits; Z95.5 Presence of coronary angioplasty implant and graft; Z95.810 Presence of automatic (implantable) cardiac defibrillator; Z79.4 Long term (current) use of insulin; Z79.82 Long term (current) use of aspirin
CPT/HCPCS: 36415; 71045; 80048; 80053; 80061; 82550; 82553; 82947; 82962; 83036; 83735; 84100; 84439; 84443; 84484; 85025; 85610; 85730; 93005; 94660; 97161; 97166; 97535; 99285-25